=== PATIENT | male | born 1940 | race American Indian/Alaskan Native ===

== ENCOUNTER 2017-05-07 13:51 | Inpatient (IN) | payer MEDICARE, OTHER ==
[~2017-05-07] VITALS: Ht 177.8 cm; Wt 86.2 kg
[~2017-05-07 13:51] MED LIST: ACEROLA C500 MG PO; ALLERGY RELIEF10 M1 PO; ASPIRIN EC81 MG PO; CALCIUM CARBON500 MG PO; CLINDAMYCIN HC150 MG PO; FERROUS SULFAT325 MG PO; FLOMAX0.4 MG PO; HYDROCODON-ACE1 EAC8 PO; LEVOTHYROXINE25 MCG PO; LISINOPRIL5 MG PO; METFORMIN HCL500 MG PO; MULTILEX-T-M W1 EACH PO; OMEPRAZOLE20 MG PO; SULFACETAMIDE S15 ML
--- NOTE | 2017-05-07 18:42 | NUR ---
PT TO FLOOR AT 1800. PT ABLE TO SCOOT FROM STRETCHER TO BED WO PROBLEMS. PT A\O. ABLE TO GIVE URINE SAMPLE, SENT TO LAB. PT LUNGS CLEAR AND DIM WITH FINE CRACKLES IN THE BASES. PT DENIES COUGH. DC'D FIELD START IV. PT STANDBY ASSIST. SON WILL BRING GLASSES. VS STABLE.
--- NOTE | 2017-05-07 20:31 | EKG ---
[facility] [address] [facility] [place] [address] Signed Normal sinus rhythm Low voltage QRS Borderline ECG No previous ECGs available Confirmed by NADEGE THOMAS MD ([id number]) on 05/07/2017 8:31:32 PM Electronically Signed By: NADEGE THOMAS MD 05/07/172030 PATIENT NAME: WON TELLO Electrocardiogram DATE OF : 40 PHYSICIAN: NADEGE THOMAS MD REPORT #: [id number] REPORT IS CONFIDENTIAL AND NOT TO BE RELEASED WITHOUT AUTHORIZATION
--- NOTE | 2017-05-08 01:00 | NUR ---
PATIENT UP AND AMBULATES TO BATHROOM WITH CHARGE NURSE. UNMEASURED VOID. DENIED ANY COMPLAINTS.
--- NOTE | 2017-05-08 02:47 | NUR ---
PATIENT SLEEPING IN BED - NO SIGNS OF DISTRESS, NO COMPLAINTS
--- NOTE | 2017-05-08 05:12 | NUR ---
PATIENT HAS SLEPT WELL THRU THE NIGHT. UP TO BATHROOM TO VOID. NO COMPLAINTS OF PAIN, SOB OR DIFFICULTY BREATHING. PATIENT ACCUCHECKS ACHS - NO COVERAGE NEEDED DURING THIS SHIFT.
--- NOTE | 2017-05-08 07:10 | NUR ---
REPORT RECEIVED FROM JAMISON RASMUSSEN. PT UP IN CHAIR. STATES HE SLEPT WELL AND FEELS FINE.
--- NOTE | 2017-05-08 09:00 | NUR ---
PT UP IN CHAIR. HAS FINISHED BREAKFAST. STATES THEY ALREADY DID HIS BLOOD SUGAR THIS MORNING AND DOES NOT WANT TO DO IT AGAIN. BLOOD DRAW AT 0630 IS THE ONLY DOCUMENTED BS I CAN FIND, WILL USE THAT FOR SS. PT DENIES PAIN OR FURTHER NEEDS.
--- NOTE | 2017-05-08 09:55 | NUR ---
PT IS SITTING UP IN CHAIR WATCHING TV. VITALS TAKEN. PT AGREED TO SHOWER BUT WANTS TO WAIT FOR FAMILY TO BRING IN SOME PERSONAL ITEMS. PT ASKED FOR TV GUIDE
--- NOTE | 2017-05-08 10:55 | NUR ---
PT UP IN CHAIR READING A BOOK. DENIES CONCERNS. TOLERATING FLUID RESTRICTION
[2017-05-08] MEDS ORDERED: MILK OF MA400 MG/5 M PO (12:45)
--- NOTE | 2017-05-08 12:46 | NUR ---
MED REC COMPLETE--PER LUISA
--- NOTE | 2017-05-08 13:37 | NUR ---
PT ATE 100% OF LUNCH. TOLERATED WELL. DENIES FURTHER CONCERNS.
--- NOTE | 2017-05-08 14:36 | NUR ---
PT IS CURRENTLY IN THE SHOWER, WILL CALL WHEN HE IS DONE
--- NOTE | 2017-05-08 17:07 | NUR ---
PT SITTING IN CHAIR EATING DINNER. STARTED AB. INSTRUCTED TO CALL IF THE PUMP BEEPS. DENIES CONCERNS.
--- NOTE | 2017-05-08 17:49 | NUR ---
PT HAD GOOD DAY. UP IN CHAIR ALL DAY READING. TOLERATING ADA DIET AND FLUID RESTRICITON. IV AB. IV FLUSHES WELL.
--- NOTE | 2017-05-08 18:02 | NUR ---
PT IS SITTING UP IN CHAIR WITH CALL LIGHT IN REACH, JUST FINISHED DINNER, VITALS TAKEN. PT DOES NOT NEED ANYTHING ELSE AT THE MOMENT.
--- NOTE | 2017-05-08 19:00 | NUR ---
BEDSIDE REPORT RECEIVED FROM OFFGOING NURSE. PT SITTING UP IN CHAIR WITH FAMILY AT BEDSIDE. PT DENIES NEEDS AT THIS TIME. CALL LIGHT WITHIN REACH.
--- NOTE | 2017-05-08 21:30 | NUR ---
PT ASSESSMENT COMPLETE. PT SITTING UP IN CHAIR. DENIES PAIN. LUNGS CLEAR/DIM. PT DENIES NEEDS AT THIS TIME, STATES THAT HE WILL CALL WHEN HE IS READY FOR BED. CALL LIGHT WITHIN REACH.
--- NOTE | 2017-05-08 23:52 | NUR ---
PT RESTING WITH EYES CLOSED. RESPIRATIONS ARE EVEN AND UNLABORED. PT APPEARS TO BE SLEEPING. CALL LIGHT WITHIN REACH.
--- NOTE | 2017-05-09 02:15 | NUR ---
PT RESTING IN BED WITH EYES CLOSED. RESPIRATIONS EVEN AND UNLABORED. PT APPEARS TO BE SLEEPING. CALL LIGHT WITHIN REACH.
--- NOTE | 2017-05-09 04:17 | NUR ---
PT RESTING IN BED WITH EYES CLOSED. RESPIRATIONS EVEN AND UNLABORED. PT APPEARS TO BE SLEEPING. CALL LIGHT WITHIN REACH.
--- NOTE | 2017-05-09 04:35 | NUR ---
PT RESTED IN BED MAJORITY OF SHIFT. DENIES PAIN, SOB, NAUSEA. PT TOLERATING FLUID RESTRICTION WELL. IV SL EXCEPT FOR ABX ADMIN. CBG CHECKS AND SSI.
--- NOTE | 2017-05-09 06:20 | NUR ---
PT RESTING IN BED WITH EYES CLOSED, WAKES EASILY. PT DENIES PAIN, NAUSEA, SOB. PT STATES THAT HE WOULD LIKE TO TAKE A SHOWER TODDAY, WILL PASS ALONG IN REPORT. PT DENIES OTHER NEEDS. CALL LIGHT WITHIN REACH.
--- NOTE | 2017-05-09 09:00 | NUR ---
PT AWAKE SITTING IN CHAIR, ORIENTED TO ALL. DENIES CHEST PAIN, NAUSEA, OR OTHER CONCERNS AT THIS TIME. RUGHT LUNG CLEAR THROUGHOUT, LEFT CLEAR IN UPPER AND DIMINISHED, NO WHEEZING OR CRACKLES. PT INDEPENDENT IN ROOM. ALL OF BREAKFAST EATEN. CALL LIGHT WITHIN REACH.
--- NOTE | 2017-05-09 09:45 | NUR ---
PT UP TO SHOWER. SHOWERING INDEPENDENTLY.
[2017-05-09] MEDS ORDERED: LEVOFLOXACIN750 MG PO (10:10)
--- NOTE | 2017-05-09 10:15 | NUR ---
PT SITTING UP IN RECLINER, WEARING PERSONAL CLOTHING. PT WAITING FOR RIDE FOR DC. DENIES NEEDS OR CONCERNS AT THIS TIME.
== END 2017-05-09 11:45 | disposition home or self-care (01) | DRG 194 ==
LOC: ED 13:51 → MS 17:33
PROVIDERS: ADMIT Internal Medicine
DX: J13 Pneumonia due to Streptococcus pneumoniae (principal); E87.1 Hypo-osmolality and hyponatremia; E11.9 Type 2 diabetes mellitus without complications; Z79.4 Long term (current) use of insulin; N40.0 Benign prostatic hyperplasia without lower urinary tract symptoms; K21.9 Gastro-esophageal reflux disease without esophagitis; E03.9 Hypothyroidism, unspecified
CPT/HCPCS: 36415; 71010; 80048; 80053; 82533; 82570; 83605; 83735; 83930; 83935; 84133; 84300; 84439; 84443; 84484; 84540; 84550; 85025; 87040; 87449; 87899; 93005; 93010; 94667; 94668; J1650; J1956

== ENCOUNTER 2017-06-14 14:37 | Emergency (ER) | payer OTHER ==
[~2017-06-14] VITALS: Ht 177.8 cm; Wt 86.2 kg
[~2017-06-14 14:37] MED LIST changes: +LEVOFLOXACIN750 MG PO; +MILK OF MA400 MG/5 M PO
[2017-06-14] MEDS ORDERED: ULTRAM50 MG PO (15:11)
[2017-06-14] MEDS ORDERED: LASIX20 MG PO (16:59)
[2017-06-14] MEDS ORDERED: KLOR-CON M1010 MEQ PO (16:59)
--- NOTE | 2017-06-14 17:24 | EKG ---
[facility] [address] [facility] [place] [address] Signed Normal sinus rhythm T wave abnormality, consider inferior ischemia Abnormal ECG When compared with ECG of 07-MAY-2017 13:53, T wave inversion more evident in Inferior leads Nonspecific T wave abnormality now evident in Anterolateral leads Confirmed by NADEGE THOMAS MD ([id number]) on 06/14/2017 5:24:15 PM Electronically Signed By: NADEGE THOMAS MD 06/14/17 1724 PATIENT NAME: WON TELLO Electrocardiogram DATE OF : 40 PHYSICIAN: NADEGE THOMAS MD REPORT #: [id number] REPORT IS CONFIDENTIAL AND NOT TO BE RELEASED WITHOUT AUTHORIZATION
== END 2017-06-14 17:20 | disposition home or self-care (01) ==
LOC: ED 14:37
DX: I20.9 Angina pectoris, unspecified (principal); J90 Pleural effusion, not elsewhere classified; E11.9 Type 2 diabetes mellitus without complications; I10 Essential (primary) hypertension; K21.9 Gastro-esophageal reflux disease without esophagitis; Z90.49 Acquired absence of other specified parts of digestive tract; Z79.84 Long term (current) use of oral hypoglycemic drugs; Z79.899 Other long term (current) drug therapy; Z79.82 Long term (current) use of aspirin; Z79.891 Long term (current) use of opiate analgesic
CPT/HCPCS: 71020; 80053; 83880; 84484; 85025; 93005; 93010; 96360; 99284; J7030

== ENCOUNTER 2017-08-17 17:58 | Emergency (ER) | payer OTHER ==
[~2017-08-17] VITALS: Ht 177.8 cm; Wt 80.3 kg
[~2017-08-17 17:58] MED LIST changes: +KLOR-CON M1010 MEQ PO; +LASIX20 MG PO; +ULTRAM50 MG PO
[2017-08-17] MEDS ORDERED: METAMUCIL660 GM PO (22:07)
== END 2017-08-17 22:37 | disposition home or self-care (01) ==
LOC: ED 17:58
DX: R10.32 Left lower quadrant pain (principal); I10 Essential (primary) hypertension; E11.9 Type 2 diabetes mellitus without complications; K21.9 Gastro-esophageal reflux disease without esophagitis; Z90.49 Acquired absence of other specified parts of digestive tract; Z79.899 Other long term (current) drug therapy; Z79.891 Long term (current) use of opiate analgesic; Z79.82 Long term (current) use of aspirin; Z79.84 Long term (current) use of oral hypoglycemic drugs
CPT/HCPCS: 71010; 74177; 80053; 83690; 85025; 99284; Q9967

== ENCOUNTER 2017-10-04 14:35 | Inpatient (IN) | payer MEDICARE, OTHER ==
[~2017-10-04] VITALS: Ht 177.8 cm; Wt 80.0 kg
[~2017-10-04 14:35] MED LIST changes: +METAMUCIL660 GM PO
--- NOTE | 2017-10-04 21:10 | NUR ---
10/04/172109 Sapphire Arcos 9--PATIENT ARRIVED TO PACU ON 6L MASK O2 SAT 100% PATIENT REACTIVE TO VOICE. ABDOMEN SOFT AND ROUND. GLUCOSE 123. POTASSIUM DONE INFUSING.
--- NOTE | 2017-10-04 21:56 | NUR ---
PT ARRIVED TO FLOOR VIA STRETCHER AT 2134. ABLE TO TRANSFER SELF FROM STRETCHER TO HOSPITAL BED BY SCOOTING HIMSELF OVER. HE IS ALERT AND ORIENTED X4, VERY PLEASENT AND COOPERATIVE. DENIES PAIN. DENIES NAUSEA. ORIENTED TO ROOM AND CALL LIGHT. PT'S TWO SONS ARE IN ROOM AT THIS TIME.
--- NOTE | 2017-10-04 22:25 | EKG ---
[facility] [address] [facility] [place] [address] Signed Normal sinus rhythm Normal ECG When compared with ECG of 14-JUN-2017 14:45, No significant change was found Confirmed by NADEGE THOMAS MD ([id number]) on 10/04/2017 10:25:35 PM Electronically Signed By: NADEGE THOMAS MD 10/04/17 2225 PATIENT NAME: ELISHAWON Electrocardiogram DATE OF : 40 PHYSICIAN: NADEGE THOMAS MD REPORT #: [id number] REPORT IS CONFIDENTIAL AND NOT TO BE RELEASED WITHOUT AUTHORIZATION
--- NOTE | 2017-10-04 23:39 | NUR ---
1 PERSON ASSISTED PATIENT TO THE BATHROOM AND BACK TO BED. PATIENT VOIDED AND HAD A LIQUID BOWEL MOVEMENT. ICE CHIPS GIVEN. LAST POST PROCEDURE V/S TAKEN. CALL LIGHT WITHIN REACH.
--- NOTE | 2017-10-05 01:06 | NUR ---
PT APPEARS TO BE SLEEPING. RR WNL AND UNLABORED.
--- NOTE | 2017-10-05 02:04 | NUR ---
V/S I&O TAKEN. PATIENT JUST NEED WARM BLANKET. GIVEN.
--- NOTE | 2017-10-05 09:30 | NUR ---
PATIENT SITTING UP IN BED. MED STUDENT IN WITH PATIENT. PATIENT STATES THAT HE WILL CALL WHEN MED STUDENT LEAVES SO HE CAN WASH UP.
--- NOTE | 2017-10-05 10:43 | NUR ---
ALL PT NOTES AND ASSESSMENTS DONE ON PAPER CHART PRIOR TO THIS TIME. PT WORKING ON DRINKING GATORADE MIX RIGHT NOW.
--- NOTE | 2017-10-05 11:48 | NUR ---
PT UP TO THE RESTROOM WITH SBA.
--- NOTE | 2017-10-05 12:22 | NUR ---
PT UP TO THE RESTROOM WITH ANOTHER LOOSE STOOL. PT STATES HE STILL FEELS BACKED UP. RUNNING AB ON RIGHT AC PHOS IS RUNNING IN THE LEFT.
--- NOTE | 2017-10-05 14:21 | NUR ---
PATIENT RESTING IN BED. CALL BUTTON IN REACH. PATIENT WOULD LIKE TO SHOWER AFTER HE FINISHES HIS BOWEL PREP. NO OTHER NEEDS AT THIS TIME.
--- NOTE | 2017-10-05 16:19 | NUR ---
PT IN BED. ORDERED SCD. PUT THEM ON PT. CALL LIGHT IN REACH.
--- NOTE | 2017-10-05 17:30 | NUR ---
ASSESSED PT BLOOD SUGAR. 114. NO COVERAGE NEEDED. PT DRANK SOME TEA BUT NOTHING ELSE. UPPER ABDOMEN STILL EXTREMELY DISTENDED. STATES THAT IT IS WAY BETTER THAN YESTERDAY WHEN HE CAME IN.
--- NOTE | 2017-10-05 20:35 | NUR ---
PT IN BED, WATCHING TV. ANTIBOTIC COMPLETED. ASKED PT IF HE NEEDED TO USE THE BATHROOM, HE STATED NO, HE WOULD CALL WHEN HE NEEDED TO USE BATHROOM. CALL LIGHT WITHIN REACH, DENIES PAIN.
--- NOTE | 2017-10-05 22:07 | NUR ---
ASSISTED PATIENT TO THE BATHROOM AND BACK TO BED. PATIENT WASHED HANDS AND FACE. CALL LIGHT WITHIN REACH. DID NOT NEED ANYTHING AT THE MOMENT.
--- NOTE | 2017-10-06 02:22 | NUR ---
PT COMPLAINED OF 6/10 PAIN AFTER GETTING UP TO THE BATHROOM. PT VOIDED AND HAD A SMALL LIQUID BM. GAVE DILAUDID 0.5MG IV AND ZOFRAN 8MG IV FOR PAIN AND SLIGHT NAUSEA. PT HAS NO FURTHER NEEDS. CALL LIGHT IN REACH.
--- NOTE | 2017-10-06 05:36 | NUR ---
PT SLEPT MAJORITY OF SHIFT. UP TO BATHROOM A FEW TIMES, VOIDING WELL, LIQUID BM'S. GAVE DILAUDID 0.5MG IV FOR PAIN X1. ALERT AND ORIENTED X4, PLEASENT AND COOPERATIVE. STANDBY ASSIST. SURGERY SOMETIME LATE MORNING TODAY.
--- NOTE | 2017-10-06 07:29 | NUR ---
RECIEVED REPORT FROM JAMISON GRIFFITH. PT ASLEEP. PT STATES THE ABDOMINAL DISTENTION IS STILL BETTER THAN WHEN HE CAME IN ALTHOUGH IS QUITE DISTENDED. CALLED DR EDOUARD REGARDING LOW POTASSIUM OF 2.7. HE ORDERED 40 MEQ PO ELIXER AND 40 MEQ IV NOW. PUT ORDER IN AND AWAITING VERIFICATION.
--- NOTE | 2017-10-06 07:59 | OR ---
[facility] [address] [place], [place] [address] Signed DATE OF OPERATION: 10/04/2017 SURGEON: María Fish MD PREOPERATIVE DIAGNOSIS: Sigmoid volvulus. POSTOPERATIVE DIAGNOSIS: Sigmoid volvulus. PROCEDURE: Colonoscopy with reduction of sigmoid volvulus. ESTIMATED BLOOD LOSS: None. INDICATIONS: Won is a 76-year-old gentleman I know from in the office previously. He thought I did his colonoscopy last summer. When I checked our computer here at the hospital, I found colonoscopy from 2014. We had ran the colonoscope all the way up to the handle. We still want in the right colon. We had a barium enema done afterwards and he has a very long redundant sigmoid colon as well as a long redundant splenic flexure. The last 3 to 4 days, he has had no bowel movement and no flatus. He has had increasing abdominal distention and did need for 3 days. He tried some Milk of Magnesia and so forth and with no improvement. He finally came to the emergency room for evaluation. In the emergency room, he had [id number] abdominal distention. He was moderately firm. He had mild diffuse tenderness, but no peritoneal signs or symptoms. White count was normal. CT scan showed the sigmoid volvulus. I was asked to see him as a general surgeon presentation manager in the emergency room. I met with Won in the emergency room and I explained him the above findings, also his potassium is quite low at 2.9. They did give him 40 mEq potassium p.o. in the ER along with 10 mEq IV. I explained to Won, our plan was take him down to the endoscopy suite for limited colonoscopy to reduce the volvulus and evacuate some of that air to relieve distention on his colon and his abdomen. At least, we could hydrate him and replace his potassium and potentially put him through a bowel prep with the idea of going back and doing a primary resection and anastomosis of the sigmoid volvulus. He understands colonoscopy quite well. He understands there is risk including but not limited to gas bloating, crampy abdominal pain, bleeding, perforation requiring surgery, and missed diagnosis. He also understands the need for IV conscious sedation, given his age and medical issues and current situation. We asked an anesthesia provider to help us with increased monitoring sedation. He had expressed Electronically Signed By: MARÍA FISH MD 10/06/17 0759 PATIENT NAME: WON TELLO OPERATIVE REPORT DATE OF : 40 PHYSICIAN: MARÍA FISH MD REPORT #: [id number] REPORT IS CONFIDENTIAL AND NOT TO BE RELEASED WITHOUT AUTHORIZATION [address] [address] Signed understanding and wished to proceed. He gave me permission to call his son, Radha, but I was unable to reach him. In the meantime, Radha is here at the hospital and will be talking to him. PROCEDURE NOTE: Won was taken into our endoscopy suite and placed in the left lateral decubitus position. He was given IV sedation per nurse inspector rag sorting with propofol. He was given cefepime and Flagyl in the emergency room. After this, a digital rectal exam was performed and his rectum was empty of any stool. Adult colonoscope was introduced and advanced carefully up the rectum and into the sigmoid colon. We could see the classic twisting and swelling of the colonic mucosa and with little air pressure and just gentle pressure, we advanced the scope easily through the volvulus and up into a very dilated air-filled colon with some liquid stool. I suctioned out the air and his abdomen very rapidly decreased in girth as we set there with our scope, more air came through the liquid stool and we just suctioned that out with marked improvement in his abdominal distention. We advanced the scope as high as 50 cm, but could not advance any further because of the liquid stool. The scope was then slowly withdrawn. We did use some abdominal compression to see if we can get any more flatus or liquid stool out and we were not successful. At this point, see certainly in a much better situation, so we terminated the colonoscopy at that point. He is going to be admitted and we will replace his potassium and replace his fluids. Overall, Won tolerated the procedure quite well. María Fish MD ALB/MODL /[id number] cc: María Fish MD Electronically Signed By: MARÍA FISH MD 10/06/17 0759 PATIENT NAME: WON TELLO OPERATIVE REPORT DATE OF : 40 PHYSICIAN: MARÍA FISH MD REPORT #: [id number] REPORT IS CONFIDENTIAL AND NOT TO BE RELEASED WITHOUT AUTHORIZATION [address] [address] Signed JOSE Franco Electronically Signed By: MARÍA FISH MD 10/06/17 0759 PATIENT NAME: ELISHAWON OPERATIVE REPORT DATE OF : 40 PHYSICIAN: MARÍA FISH MD REPORT #: [id number] REPORT IS CONFIDENTIAL AND NOT TO BE RELEASED WITHOUT AUTHORIZATION
--- NOTE | 2017-10-06 07:59 | CONS ---
[facility] [address] [place], [place] [address] Signed DATE OF CONSULTATION: 10/04/2017 CHIEF COMPLAINT: No bowel movement for 3 to 4 days. HISTORY OF PRESENT ILLNESS: Won is a 76-year-old gentleman I know previously from the office. We did his colonoscopy just this last summer. He said he lives alone. He has never been , although he does have one son. He has not had a BM since 09/30/2017. He tried some laxatives and Metamucil without success. He said he has not eaten in 3 days. He has generalized abdominal distention. He finally came to the emergency room for evaluation. He clearly has diffuse generalized moderate distention of the abdomen. He is a little tender, but no peritonitis. His white count is not elevated. CT scan showed what looks like a sigmoid volvulus with stool throughout the entire colon. Consequently, I was asked to see him as a general surgeon five piece expansion maker hand. In the meantime, we did give him cefepime and Flagyl. Unfortunately, his potassium is also quite low at 2.7. PAST MEDICAL HISTORY: Type 2 diabetes, hypertension, gastroesophageal reflux disease, anemia, and eye infection. PAST SURGICAL HISTORY: Cholecystectomy, left knee surgery, and colonoscopy in summer. SOCIAL HISTORY: He does not smoke or drink. He has 1 son, Radha at [phone]. is his primary care provider. He prefers the pharmacy through the [facility]. He lives alone in his house. He drives and has never been . FAMILY HISTORY: Not reviewed today. REVIEW OF SYSTEMS: I reviewed 10 systems of Won and really nothing new since I have seen him last summer. ALLERGIES: None. MEDICATIONS: Lasix, potassium, Metamucil, metformin, ascorbic acid, aspirin, iron, levothyroxine, Electronically Signed By: MARÍA FISH MD 10/06/17 0759 PATIENT NAME: WON TELLO CONSULTATION DATE OF : 40 PHYSICIAN: MARÍA FISH MD REPORT #: [id number] REPORT IS CONFIDENTIAL AND NOT TO BE RELEASED WITHOUT AUTHORIZATION [facility] [address] [place] [id number] Signed Prilosec, Flomax, calcium, vitamin D, multivitamin, Milk of Magnesia, and tramadol. PHYSICAL EXAMINATION: VITAL SIGNS: Blood pressure 120/64, his heart rate 74, respiratory rate 16, temperature is 97.8, he is 98% on room air. He is 5 feet 10 inches, 80 kg. GENERAL: Won is a 76-year-old gentleman, lying supine in his emergency room bed. He does not appear systemically ill or toxic. LUNGS: Clear to auscultation bilaterally. HEART: Regular rate and rhythm. ABDOMEN: Shows moderate diffuse distention with mild tenderness throughout. LABORATORIES: His white blood cell count is 9.9. His hemoglobin is 12, potassium is 2.7, BUN 19, creatinine 0.8. Liver function tests are negative. His albumin is 3.8. EKG shows normal sinus rhythm. DIAGNOSTIC STUDIES: CT scan of the abdomen and pelvis shows the swelling on the right near the rectosigmoid junction consistent with sigmoid volvulus with stool backed up in the colon around to the cecum. There was a question whether or not it could be some pneumatosis in the cecum. ASSESSMENT AND PLAN: Won is a 76-year-old gentleman, who presents with not only sigmoid volvulus, but significant hypokalemia. At this point, we are going to take him down to our endoscopy suite and see if we just cannot use the colonoscope without much stool. We may not be successful. In addition, he is going to need his potassium corrected and we will continue his antibiotics. He is well aware of the event if we untwist the sigmoid colon. There was a 40% chance that can recur and consequently gently off these patient's surgery. He has expressed understanding and agrees above plan. María Fish MD [facility] /[id number] Electronically Signed By: MARÍA FISH MD 10/06/17 0759 PATIENT NAME: WON TELLO CONSULTATION DATE OF : 40 PHYSICIAN: MARÍA FISH MD REPORT #: [id number] REPORT IS CONFIDENTIAL AND NOT TO BE RELEASED WITHOUT AUTHORIZATION [facility] [address] [facility] [place] [address] Signed cc: MD Nader Billy PA Electronically Signed By: MARÍA FISH MD 10/06/17 0759 PATIENT NAME: ELISHAWON CONSULTATION DATE OF : 40 PHYSICIAN: MARÍA FISH MD REPORT #: [id number] REPORT IS CONFIDENTIAL AND NOT TO BE RELEASED WITHOUT AUTHORIZATION
--- NOTE | 2017-10-06 08:25 | NUR ---
AM PLAN IS TO GO TO THE OR THIS MORING AT SOME POINT. PT WAS WIPED DOWN WITH SURGICAL WIPES AT THIS TIME. PT REMAINS NPO AT THIS TIME.
--- NOTE | 2017-10-06 09:00 | NUR ---
PT UP TO THE RESTROOM. APPEARS PAINFUL ALTHOUGH PT DENIES NEEDING ANYTHING. POTASSIUM INFUSING WNL.
--- NOTE | 2017-10-06 10:31 | NUR ---
PT RESTING WITH EYES CLOSED. WIPE DOWN WAS DONE BY IRAM NEAL.
--- NOTE | 2017-10-06 11:22 | NUR ---
PATIENT TO SURGERY. IV KCL SENT WITH PUMP. STRAIGHT TUBING SENT WELL. JOSE ENRIQUE FROM SURGERY TRANSPORTING PATIENT IN BED TO SURGERY.
--- NOTE | 2017-10-06 11:32 | NUR ---
PT TO OR VIA STREACHER AT THIS TIME.
--- NOTE | 2017-10-06 11:33 | NUR ---
PT OFF FLOOR WITH SURGERY.
--- NOTE | 2017-10-06 14:35 | NUR ---
PT REMAINS OFF UNIT
--- NOTE | 2017-10-06 16:15 | NUR ---
10/06/17 1615 Sapphire Arcos 1604-PATIENT ARRIVED TO PACU ON 6L MASK O2 SAT 100% PATIENT NONAROUSABLE ORAL AIRWAY IN PLACE SR. DRESSING CDI. PATIENT HAS ATTENDS ON AND LIQUID STOOL. 1610-PATIENT AROUSES TO TATILE STIMULI OPENING EYES. DOZES BACK TO SLEEP.
--- NOTE | 2017-10-06 16:58 | NUR ---
PT TO FLOOR WITH RN ALEXIS. PT DROWSY BUT AROUSABLE. PT DENIES PAIN OR DISCOMFORT. ABDOMEN NOTICABLY SOFTER AND FLATTER. IVF INFUSING. DRESSING CDI. DEPENDS AND CHUCKS IN PLACE.
--- NOTE | 2017-10-06 19:47 | NUR ---
PT RESTING, FOLLOWS INSTRUCTIONS WELL. I9VF INFUSING W.O PROBLEMS, INCONTINENT OF LOOSE BROWN-CHALKY COLORED BM. CLEANSED, NO C/O . MID LINE DRESSING INTACT, F/C PATENT DRAINING DARK YELLOW URINE, COMFORTABLE
--- NOTE | 2017-10-06 23:11 | NUR ---
medicated with dilaudid 1 mg iv . c/o abd pain, awake, talking. abd dressing cdi/
--- NOTE | 2017-10-06 23:31 | NUR ---
VITALS AND I&OS DONE. REPOSITIONED PT WITH HELP FROM HIS RN. PT STATED HE WAS COMFORTABLE AT THIS TIME. PER PT REQUEST I GOT HIM A WARM BLANKET. BED SIDE TABLE AND CALL LIGHT IN REACH. PT SAID HE NEEDED NOTHING ELSE AT THIS TIME.
--- NOTE | 2017-10-07 02:25 | NUR ---
VITALS AND I&O S DONE. I ASKED HIM HOW HE WAS FEELING? HE STATED HIS STOMACH FEELS REALLY GOOD. ASKED IF HE NEEDED ANYTHING ? HE STATED NO. LEFT HIS CALL LIGHT AND BEDSIDE TABLE IN REACH.
--- NOTE | 2017-10-07 02:57 | NUR ---
PER PT REQUEST I GAVE HIM MORE ICE CHIPS. ASKED IF HE NEEDED ANYTHING ELSE? HE SAID NO. HIS CALL LIGHT AND SIDE TABLE IN REACH. ASKED IF HE WAS IN PAIN ? HE STATED NO AT THIS TIME.
--- NOTE | 2017-10-07 03:47 | NUR ---
no further c/o pain, awakens easily, ivf infusing w/o problems, abd dressing cdi, ice to area, f/c patent, no c/o pain or n/v, helpful with turning, no further loose stools
--- NOTE | 2017-10-07 04:20 | NUR ---
medicated witn 1mg iv dialudid c/o abd pain 06/27
--- NOTE | 2017-10-07 07:10 | NUR ---
BEDSIDE HANDOFF REPORT RECEIVED FROM PLANT FLOOR AUTOMATION MANAGER RN. PT RESTING IN BED. PT ON ROOM AIR, O2 SATS 93%. PT DENIES NEEDS AT THIS TIME.
--- NOTE | 2017-10-07 08:15 | NUR ---
PT RESTING IN BED. PT ON ROOM AIR, O2 SAT S93%, DENIES SOB, LUNG SOUNDS CLEAR. PT DENIES NAUSEA, BOWEL TONES ACTIVE. MIDLINE INCISION DRESSING CDI. CMS INTACT, NO EDEMA NOTED. PT ASSISTED TO CHAIR, 1 PA, DENIES DIZZINESS. PT TOLERATING CLEAR LIQUIDS <250/8HRS. DE LEON INPLACES, DRAINING CONCENTRATED URINE.
--- NOTE | 2017-10-07 08:33 | NUR ---
PT REQUESTING PAIN MEDICATION. 1 MG IV DILAUDID GIVEN. PT SITTING IN HCAIR, PROVIDED TOOTH BRUSH. PT DENIES OTHER NEEDS AT THIS TIME.
--- NOTE | 2017-10-07 09:27 | NUR ---
PT IS SITTING UP IN CHAIR WITH CALL LIGHT IN REACH. PT DID NOT NEED ANYTHING AT THE MOMENT
--- NOTE | 2017-10-07 09:29 | OR ---
[facility] [address], [place] [address] Signed DATE OF OPERATION: 10/06/2017 SURGEON: María Edouard MD PREOPERATIVE DIAGNOSIS: Sigmoid volvulus. POSTOPERATIVE DIAGNOSIS: Sigmoid volvulus. PROCEDURE: Sigmoidectomy with a Le side-to-end colorectal anastomosis, hand-sewn in 2 layers. ESTIMATED BLOOD LOSS: None. INDICATIONS: Won is a 76-year-old gentleman I have known previously. I did his colonoscopy back in 2014. We ran the colonoscope all the way up to the handle, we never made it to the right colon. Consequently, he had a barium enema done back in 2014. He has a very long redundant sigmoid colon. He had done well the last couple of years and then four days prior to admission, he said he had no bowel movement and he quit eating for 3 days. He tried various laxatives without success. He had diffuse significant abdominal distension with diffuse mild tenderness. He came to the emergency room for evaluation. His white count was normal at 9.1. His potassium was low at 2.7. The CT scan of abdomen and pelvis showed the swirling consistent with the sigmoid volvulus. I have been asked to see him in the emergency room as a general surgeon on-call. I took him directly to the endoscopy suite. With the colonoscope, we reduced the sigmoid volvulus. We got a tremendous amount of air out of his colon and he was markedly improved immediately following the procedure. We admitted him to the hospital for IV hydration and corrected his potassium levels and kept him on antibiotics. We allowed him liquid diet along with MiraLAX and Gatorade and he had a tremendous amount of liquid stool and gas out throughout the day and then later in the day, he started to get distended again consistent with recurrence of the volvulus. I had met with Won and his son, Radha and had multiple lengthy conversation with him regarding sigmoid volvulus. I explained that there was a 40% chance it would recur and consequently, we would like to recommend sigmoid resection with colorectal anastomosis. In emergent cases, certainly we can do colostomies. I had explained to them the nature of the surgery along with its risks including, but not limited to bleeding, infection, scarring, change in contour of the skin, damage to bowel, damage to the ureters, anastomotic leak, incisional hernias, and Electronically Signed By: MARÍA EDOUARD MD 10/07/17 0929 PATIENT NAME: WON TELLO OPERATIVE REPORT DATE OF : 40 PHYSICIAN: MARÍA EDOUARD MD REPORT #: [id number] REPORT IS CONFIDENTIAL AND NOT TO BE RELEASED WITHOUT AUTHORIZATION [facility] [address], [place] [address] Signed other unforeseen comorbidities. They had expressed understanding and wished to proceed. PROCEDURE NOTE: Won was brought down to our operating room and kept in the right lateral decubitus position on his hospital bed. We inserted the rigid proctoscope after some IV sedation and we had no success reducing the volvulus with a rigid proctoscope. After this, Won was placed supine onto the operating room table. He was then placed under general endotracheal tube anesthesia. He was already on preoperative antibiotics along with subcutaneous heparin. SCDs were in place. Ma catheter was inserted with return of clear yellow urine. He was then prepped and draped in the usual sterile fashion. After this, a standard periumbilical midline incision was made and carried in the abdomen with the help of the cautery. As is common, he had an enormous length of sigmoid colon, it was easily brought up out of the abdominal cavity. I was able to untwist the volvulus at that time. There was lots of edema in the mesentery as well as the bowel wall. The Bookwalter retractor was then placed. We did divide the bowel at the top of the rectum with our TA 60 stapler. The mesocolon was then divided between Pean clamps and 0 Vicryl ties back to the left colon. This straightened out the colon nicely. It was brought down to perform a side-to-end Le colorectal anastomosis. Our bowel clamp was placed on the proximal portion of the left colon and then we just opened the small portion of the distal left colon and evacuated the liquid stool and the air with the help of our suction. The proximal colon had been divided with our 75 mm linear stapler. After this, we performed our standard anastomosis in 2 layers with Vicryl and silk sutures. Because this colon was a bit dilated, anastomosis was quite wide at least 3 cm, if not a little bit more. After completion of anastomosis, the bowel clamp was removed and the pelvis was copiously irrigated with large amounts of warm antibiotic saline solution. Immediately ,air and some liquid stool came down the bowel through our anastomosis and out some of his rectum on to the bed. There was no leak whatsoever. After this, the small bowel was returned to its position and we closed the midline fascia with interrupted #1 [id number] PDS suture. The wound was irrigated and suctioned out until clear. The dermis was reapproximated with interrupted 3-0 subcuticular Monocryl sutures. The skin was reapproximated with luis e. Just prior to the procedure, our councilman had placed bilateral TAP blocks. Dry gauze and tape were then applied. Won was then awakened from his anesthesia, extubated in the OR, and taken to recovery room in stable condition. Electronically Signed By: MARÍA EDOUARD MD 10/07/17 0929 PATIENT NAME: WON TELLO OPERATIVE REPORT DATE OF : 40 PHYSICIAN: MARÍA EDOUARD MD REPORT #: [id number] REPORT IS CONFIDENTIAL AND NOT TO BE RELEASED WITHOUT AUTHORIZATION [address] [place], [place] [address] Signed MD DORA Billy/LEVY /[id number] cc: JOSE Franco Electronically Signed By: MARÍA EDOUARD MD 10/07/17 0929 PATIENT NAME: WON TELLO OPERATIVE REPORT DATE OF : 40 PHYSICIAN: MARÍA EDOUARD MD REPORT #: [id number] REPORT IS CONFIDENTIAL AND NOT TO BE RELEASED WITHOUT AUTHORIZATION
--- NOTE | 2017-10-07 10:00 | NUR ---
PT SITTING IN CHAIR. PT STATES PAIN IS BETTER, DENIES NEED AT THIS TIME.
--- NOTE | 2017-10-07 11:00 | NUR ---
DRESSING REMOVED PER MD ORDER, EDGES WELL APPROXIMATED, STEVE IN PLACE, NO REDNESS NOTED, SMALL AMOUNT OF OLD BLOODY DRAINAGE. DE LEON CATH REMOVED PER ORDER. PT PROVIDED WITH CRANBERRY JUICE, DISCUSSED INCREASE IN PO INTAKE. PT DENIES OTHER NEEDS AT THIS TIME.
--- NOTE | 2017-10-07 13:22 | NUR ---
PT WALKED ONE FULL LENGHT OF THE HALLWAY. PT IS NOW SITTING UP IN CHAIR WITH CALL LIGHT IN REACH. PT ASKED FOR MORE ICE WATER WAS GIVEN 150ML.
--- NOTE | 2017-10-07 17:28 | NUR ---
PT ASSISTED TO BATHROOM, ATTEMPTING TO VOID.
--- NOTE | 2017-10-07 18:07 | NUR ---
PT UNABLE TO VOID, HAD LARGE LOOSE BM, PT ASSISTED BACK TO BED, BLADDER SCANNED FOR 0 ML, OBTAINING SECOND BLADDER SCANNER FOR VERIFICATION.
--- NOTE | 2017-10-07 18:22 | NUR ---
PT IS RESTING IN BED SAFELY WITH CALL LIGHT IN REACH. PT HAS BEEN UNABLE TO URINATE IN THE LAST 4HRS, NURSE AWARE. PT DID NOT NEED ANYTHING ELSE AT THE MOMENT
--- NOTE | 2017-10-07 18:41 | NUR ---
BLADDER SCAN CONTINUES TO BE O ML. CALLED, ORDER TO PLACE DE LEON, IF LOW URINE OUTPUT THEN GIVE 1000 ML LR BOLUS. INDWELLING CATH PLACED, INITIAL 125 ML OF CONCENTRATED URINE OUT. LR BOLUS INFUSING. PT DENIES OTHER NEEDS AT THIS TIME.
--- NOTE | 2017-10-07 18:45 | NUR ---
PT ON ROOM AIR, LUNG SOUNDS CLEAR. PT UP TO CHAIR. PT RATING PAIN 8/10 FOR MAJORITY OF SHIFT, PT DOES NOT CALL FOR PAIN MEDICATION, REQUIRES FREQUENT PAIN ASSESSMENT. DE LEON CATH DC'D AT 1100, UNABLE TO VOID, INDWELLING CATH INSERTED, LOW URINE OUTPUT, LR BOLUS INFUSING. PT WITH LARGE LOOSE STOOLS. MIDLINE INCISION OPEN TO AIR. PT TOLERATING CLEAR LIQUID <500 ML/8HRS. BOWEL TONES ACTIVE. PT WALKED IN [place] WITH ASSISTANCE AND SAT IN CHAIR FOR MAJORITY OF SHIFT, UP WITH SBA.
--- NOTE | 2017-10-07 19:00 | NUR ---
BEDSIDE REPORT RECEIVED FROM JAMISON SIMPSON. PT LYING IN BED, 97% ON ROOM AIR. RATES PAIN AT 7/10 IN ABDOMEN. INCISION CLEAN, DRY AND INTACT WITH STEVE, OPEN TO AIR. NO REDNESS NOTED. LR BOLUS INFUSING AT THIS TIME, FAMILY IN ROOM. PT HAS NO REQUESTS AT THIS TIME.
--- NOTE | 2017-10-07 20:08 | NUR ---
PT ASSESSMENT COMPLETE. PT CONTINUES TO RATE PAIN 7/10 AT INCISION LINE, REFUSES PRN PAIN MEDICATION AT THIS TIME. BOWEL TONES HYPOACTIVE, PRESENT X 4. PT DENIES NAUSEA, DENIES PAIN WITH PALPATION OTHER THAN MIDLINE SENSITIVITY. FLAGYL INFUSING AT THIS TIME WNL. OFFERED ORAL CARE TO PT, PT STATES "I WILL DO THAT LATER". CBG 116. CALL LIGHT IS IN REACH, DE LEON DRAINING CONCENTRATED URINE, WILL CONTINUE TO MONITOR.
--- NOTE | 2017-10-07 21:10 | NUR ---
VITALS AND I&OS DONE. PT RESTING COMFORTABLE. PT SAYS HE NEEDS NOTHING MORE AT THIS TIME WHEN ASKED. LEFT BEDSIDE TABLE AND CALL LIGHT WITHIN REACH.
--- NOTE | 2017-10-07 21:58 | NUR ---
CHECKED ON PT, PT STATES PAIN IS 9/10 IN ABDOMEN AT INCISION. ADMINISTERED 1 MG DILAUDID IV. IVF INFUSING WNL, IV SITE FLUSHES WELL. BROUGHT PT ICE WATER, ASSISTED TO BRUSH TEETH AT SIDE OF BED. PT HAS CALL LIGHT IN REACH, GIVEN WARM BLANKET.
--- NOTE | 2017-10-07 23:20 | NUR ---
IN PT ROOM TO ASSESS PAIN, PT SLEEPING, EYES CLOSED, BREATHING UNLABORED, SPO2 96% ON ROOM AIR. IVF INFUSING.
--- NOTE | 2017-10-08 01:23 | NUR ---
FLUSHED PT DE LEON, FLUSHES WELL, NO CLOTTING, SCANT SEDIMENT NOTED. PT REPORTS PAIN 8/10 ALONG INCISION SITE, INCISION CLEAN, DRY, AND INTACT WITH STEVE. ADMINISTERED PRN DILAUDID IV, IV SITE WNL. GAVE PT ICE FOR ABDOMEN PER ORDER. BOWEL TONES ACTIVE X 4, ABDOMEN SOFT. URINE DRAINING IN DE LEON, SCDS ON. IV FLAGYL INFUSING AT THIS TIME. PT BACK TO SLEEP AFTER ASSESSING PT. SPO2 95% ON ROOM AIR, HR 84, BREATHING NON-LABORED. CALL LIGHT IS IN REACH.
--- NOTE | 2017-10-08 02:44 | NUR ---
PT SLEEPING AT THIS TIME, EYES CLOSED, MOUTH OPEN, BREATHING UNLABORED, SPO2 93% ON ROOM AIR, HR 87. SCDS ON.
--- NOTE | 2017-10-08 05:20 | NUR ---
ANSWERED CALL LIGHT, ASSISTED PT FROM BED TO CHAIR WITH PEPIOT DOMINGUEZ. PT GIVEN FLUIDS, PERSONAL SUPPLIES, CALL LIGHT. IVF INFUSING WNL. PT VERBALIZED UNDERSTANDING, TO USE CALL LIGHT TO AMBULATE.
--- NOTE | 2017-10-08 05:29 | NUR ---
PT HAS CONSISTENTLY HAD LOW URINE OUTPUT THROUGHOUT SHIFT, DE LEON CATHETER DRAINING BETWEEN 25-50 ML/HR. PT HAS USED CALL LIGHT APPROPRIATELY, PRN DILAUDID IV ADMINISTERED X 2. CONTINUES TO RECEIVE IVF IN LEFT AC WNL. PT AMBULATED FROM BED TO CHAIR WITH FWW, SBA. INCISION CLEAN DRY AND INTACT WITH STEVE OPEN TO AIR, ICE APPLIED TO INCISION.
--- NOTE | 2017-10-08 06:12 | NUR ---
temp 99.4. CDB encouraged, Used IS 10x, coop with procedure. Pt up in chair, no c/o pain. f/c patent draining light trent colored urine, qs. Primary RN to be notified of temp and uo
--- NOTE | 2017-10-08 07:05 | NUR ---
BEDSIDE HANDOFF REPORT RECEIVED FROM EARLY CHILDHOOD LEAD TEACHER RN. PT SLEEPING IN CHAIR, LEFT UNDISTURBED. IV FLUIDS INFUSING AT 100 ML/HR. O2 SATS 98% ON ROOM AIR.
--- NOTE | 2017-10-08 08:09 | NUR ---
DID BLOOD SUGAR THIS MORNING.
--- NOTE | 2017-10-08 08:15 | NUR ---
PT SITTING IN CHAIR. RATING PAIN 8/10, REQUESTING PAIN MEDICATION, GIVEN 1MG IV DILAUDID. PT ON ROOM AIR, LUNG SOUNDS CLEAR. PT WITH MIDLINE INCISION, OPEN TO AIR, NO DRAINAGE NOTED. PT WITH TRACE EDEMA TO BLE, CMS INTACT. DE LEON IN PLACE, DRAININGE CONCENTRATED URINE. BOWEL TONES HYPOACTIVE, DENIES NAUSEA. IV ABX GIVEN. PT DENIES NEEDS AT THIS TIME.
--- NOTE | 2017-10-08 11:34 | NUR ---
PATIENT IS UP EATING IS LUNCH IN CHAIR LINENS CHANGED.
--- NOTE | 2017-10-08 11:36 | NUR ---
PT ASSISTED TO WALK IN [place] ABLE TO WALK 1 FULL LENGTH AND BACK TO ROOM. PT SITTING IN CHAIR, SHAVING. IV FLUIDS INFUSING. PER DR. WIN DE LEON TO REMAIN IN PLACE UNTIL TOMORROW.
--- NOTE | 2017-10-08 12:04 | NUR ---
PT SITTING IN CHAIR, EATING CLEARS TRAY FOR LUNCH, TOLERATING WELL. BLOOD GLUCOE 126, NO SS INSULIN GIVEN. PT DENIES NEEDS AT THIS TIME.
--- NOTE | 2017-10-08 13:30 | NUR ---
CARE CONFERENCE ATTENDEE: PT, PT ATTEMPTED TO GET AHOLD OF SON SEVERAL TIMES TO NO AVAIL AND SAID TO GO AHEAD WITHOUT HIM. STAFF: DR FELDER, [employer], [facility], RT, TATIANA RN. DR FELDER DISCUSSED WITH PT HOW HE IS DOING WITH RECOVERY AND WHAT WE/HE IS EXPECTING TO DO WHEN HE GOES HOME. PT STATES HIS SON STOPPED WORKING TO HELP TAKE CARE OF HIM WHEN HE GOES HOME. PT DENIES FURTHER QUESTIONS.
--- NOTE | 2017-10-08 13:34 | NUR ---
PT SITTING IN CHAIR. RATING PAIN 9/10, REQUESTING PAIN MEDICATION. GIVEN 1 TAB NORCO. INSTRUCTED PT TO CALL IF HE BEGINS TO FEEL NAUSEATED. ATE 100% OF CLEAR TRAY. IV ABX INFUSING. PT DENIES OTHER NEEDS AT THIS TIME.
--- NOTE | 2017-10-08 14:59 | NUR ---
PT UP AND WALKING IN [place] WITH IRAM DEE. HE SEEMED PLEASED TO BE UP AND WALKING. GAVE ENCOURAGEDMENT-HE SEEMED TO ACCEPT IT AND RESPOND. BRIEF VISIT HE WALKED. WILL CONTINUE TO FOLLOW
--- NOTE | 2017-10-08 15:00 | NUR ---
PT ASSISTED TO WALK IN [place], SBA WITH FWW, COMPLETED 1 FULL LAP AROUND NURSING FLOOR. PT ASSISTED TO BATHROOM FOR BOWEL MOVEMENT.
--- NOTE | 2017-10-08 17:08 | NUR ---
PT ON ROOM AIR, LUNG SOUNDS CELAR. IV FLUIDS INFUSING D5LR AT 100 ML/HR. PT AMBULATED IN HALLS WITH SBA AND FWW, SAT IN CHAIR FOR MAJORITY OF SHIFT. DIET INCREASED TO CLEAR LIQUIDS. DE LEON IN PLACE, CONCENTRATED URINE, LOW OUTPUT, 1L LR BOLUS. PT WITH LARGE LOOSE BOWEL MOVEMENT. FLAGYL AND ROCEPHIN IV. PAIN CONTROLLED WITH 1 TAB NORCO.
--- NOTE | 2017-10-08 17:15 | NUR ---
MD NOTIFIED OF POOR URINE OUTPUT, TELEPHONE ORDER FOR 1000ML LR BOLUS.
--- NOTE | 2017-10-08 17:31 | NUR ---
PT IS RESTING IN BED SAFELY WITH CALL LIGHT IN REACH. PT HAS YET TO EAT HIS DINNER, BUT SAID HE WOULD WORK ON IT SOON
--- NOTE | 2017-10-08 18:11 | NUR ---
IV TO LEFT AC LEAKING, DISCONTINUES. NEW IV OBTAINED TO RIGHT FOREARM, LR BOLU SINFUSING. PT ASSISTED TO CHAIR FOR DINNER. PT INCONTINENT OF LOOSE STOOL IN BED, PERICARE PERFORMED, BED LINENS AND GOWN CHANGED. PT DENIES OTHER NEEDS AT THIS TIME.
--- NOTE | 2017-10-08 19:05 | NUR ---
BEDSIDE REPORT RECEIVED FROM JAMISON SIMPSON. PT SITTING UP IN CHAIR, RATES PAIN 0/10, PT REQUESTS TO SIT IN CHAIR FOR A WHILE TO LET FOOD SETTLE, PLAN TO WALK/SHOWER THIS EVENING. WILL CONTINUE TO MONITOR, CALL LIGHT IS IN REACH, IVF INFUSING WNL.
--- NOTE | 2017-10-08 19:43 | NUR ---
PT SLEEPING IN CHAIR, VISIBLE CHEST RISE. IV FLAGYL INFUSING AT 200 ML/HR. CALL LIGHT IN REACH.
--- NOTE | 2017-10-08 19:50 | NUR ---
PATIENT IN CHAIR ASLEEP. WHITEBOARD UPDATED, ROOM TIDIED.
--- NOTE | 2017-10-08 20:46 | NUR ---
PT ASSESSMENT COMPLETE. PTS LUNGS SOUND CLEAR, DIMINISHED IN BASES BILATERALLY, PT DEMONSTRATED IS USE, ENCOURAGED TO USE. PT CONTINUES TO DENY PAIN, TENDERNESS IN RUQ WITH PALPATION. INCISION CLEAN, DRY AND INTACT WITH STEVE. MILD NON-PITTING EDEMA BILATERALLY IN FEET, LEGS ELEVATED WITH BED CONTROLS. PT HAS PERSONAL SUPPLIES AND CALL LIGHT IN REACH, IVF INFUSING WNL. NO ADDITIONAL REQUESTS AT THIS TIME, CBG 131.
--- NOTE | 2017-10-08 22:30 | NUR ---
PATIENT CALLED BECAUSE HE THOUGHT HE HAD A BM. BUT JUST PASSED GAS. RN GETTING HIM PAIN PILL
--- NOTE | 2017-10-08 22:35 | NUR ---
ANSWERED PT CALL LIGHT, PT THOUGHT HE HAD BM IN BED, IRAM PORTILLO ASSISTED TO TURN PT, NO STOOL NOTED. PT REPORTED PAIN 10/10 WITH MOVEMENT, ADMINISTERED PRN NORCO X 1 PO. PT GIVEN WARM BLANKET, FRESH ICE WATER, LIGHTS OFF IN ROOM. CALL LIGHT IN REACH.
--- NOTE | 2017-10-09 00:02 | NUR ---
ANSWERED PT CALL LIGHT, ASSISTED PT TO REPOSTION, BOOST IN BED WITH IRAM PORTILLO. PT GIVEN DRINK OF ICE WATER, LEGS ELEVATED ON PILLOWS, SCDS ON, IVF INFUSING, NO ADDITIONAL REQUESTS AT THIS TIME. CALL LIGHT IN REACH.
--- NOTE | 2017-10-09 01:58 | NUR ---
NURSE IN ROOM
--- NOTE | 2017-10-09 02:08 | NUR ---
PT SLEEPING, AROUSES TO VOICE. ASSESSMENT COMPLETE. LUNGS SOUND CLEAR THROUGHOUT, NON LABORED. TRACE EDEMA BILATERALLY IN FEET, IMPROVEMENT FROM EARLIER IN SHIFT. SCDS ON, IVF INFUSING WNL FLAGYL, SITE FLUSHES WELL. BOWEL TONES ACTIVE X 4, ABDOMEN SOFT. EMPTIED DE LEON, 150 ML CONCENTRATED/JOHN COLOR URINE DRAINED. PT HAS CALL LIGHT IN REACH.
--- NOTE | 2017-10-09 04:37 | NUR ---
PT SLEEPING, EYES CLOSED, RR 16, SCDS ON, IVF INFUSING.
--- NOTE | 2017-10-09 05:34 | NUR ---
PT INCONTINENT OF STOOL X 1 THIS SHIFT. DE LEON CATHETER CONTINUES TO DRAIN CONCENTRATED URINE, JOHN IN COLOR. PT RECEIVED PO NORCO X 1 FOR PAIN WITH MOVEMENT AT ABD INCISION, RUQ. PT USED CALL LIGHT APPROPRIATELY. CONTINUES TO RECEIVE IV ANTIBIOTICS, IV SITE WNL, FLUSHES WELL, SCDS ON THROUGHOUT SHIFT.
--- NOTE | 2017-10-09 06:08 | NUR ---
ANSWERED PT CALL LIGHT, PT REQUESTING TO GET UP TO CHAIR. PT INCONTINENT OF STOOL, STATED HE THOUGHT HE WAS DRY. JAMISON RODRIGUEZ SHOWERED PT. LINENS CHANGED. PT NOW UP TO CHAIR IVF INFUSING. PT BRUSHING TEETH, GIVEN FRESH ICE WATER, PERSONAL SUPPLIES, COMB IN REACH. CALL LIGHT GIVEN TO PT. PT HAS NO ADDITIONAL REQUESTS AT THIS TIME.
--- NOTE | 2017-10-09 06:30 | NUR ---
IN PT ROOM FOR FLAGYL, LEVOTHYROXINE ADMINISTRATION. ASSISTED PT WITH LIGHTING, PERSONAL SUPPLIES, EMPTIED DE LEON CATHETER, 150 ML URINE, CONCENTRATED. PT HAS NO ADDITIONAL REQUESTS. CALL LIGHT IN REACH.
--- NOTE | 2017-10-09 07:05 | NUR ---
BEDSIDE HANDOFF REPORT RECEIVED FROM MANAGER RAIL RN. PT SITTING IN CHAIR. PT DENIES NEEDS AT THIS TIME. PT ON ROOM AIR. IV FLAGYL INFUSING.
--- NOTE | 2017-10-09 08:05 | NUR ---
PT SITTING IN CHAIR. IV FLUIDS INFUSING AT 100 ML/HR. PT EATING CLEARS TRAY, TOLERATING WELL. PT REQUESTING PAIN MEDICATION, RATING PAIN 10/10 WITH MOVEMENT, GIVEN 1 TAB NORCO. PT LUNG SOUNDS CLEAR, DIMINISHED BASES, ON ROOM AIR, ENCOURAGED I/S. BOWEL TONES ACTIVE, DENIES NAUSEA. PT WITH 1+ EDEMA TO BLE, CMS INTACT. MIDLINE INCISION OPEN TO AIR, STEVE IN PLACE, EDGES WELL APPROXIMATED, WITHOUT REDNESS. DE LEON CATH IN PLACE, DRAINING CONCENTRATED URINE. PT DENIES OTHER NEEDS AT THIS TIME
--- NOTE | 2017-10-09 10:09 | NUR ---
PT IS SITTING UP IN CHAIR WORKING ON HIS CLEAR LIQUID TRAY. PT SHOWERED EARLIER THIS MORNING AND DOES NOT WISH TO SHOWER AGAIN TODAY. PT DROOPED HIS CALL LIGHT AND ASKED FOR ME TO FIND IT FOR HIM, NOW IN PT'S LAP
--- NOTE | 2017-10-09 13:50 | NUR ---
PT IS SITTING UP IN THE CHAIR WITH CALL LIGHT IN REACH. PT ASKED FOR MORE ICE WATER. PT IS GOING TO WALK WITH NURSE OUT IN HALLWAY
--- NOTE | 2017-10-09 14:16 | NUR ---
PT WALKED IN [place] WITH NURSE. DE LEON CATH REMOVED PER ORDER. SCROTUM AND PENIS EDEMATOUS, MD NOTIFIEF. 2+ EDEMA TO BLE. LUNG SOUNDS CLEAR. BOWEL TONES ACTIVE. IV FLUIDS INFUSING AT 100 ML/HR, IV ABX INFUSING. PT DENIES NEEDS AT THIS TIME, SITTING IN CHAIR.
--- NOTE | 2017-10-09 17:25 | NUR ---
PT BLOOD GLUCOSE 168, GIVEN 1 UNTI SS INSULIN. PT SITTING IN CHAIR. DISCUSSED WALKING AFTER DINNER, PT AGREEABLE. PT DENIES OTHER NEEDS AT THIS TIME.
--- NOTE | 2017-10-09 17:40 | NUR ---
PT ALERT/ORIENTED. PT WALKED IN [place] WITH SBA. LUNG SOUNDS CLEAR, ON ROOM AIR. IV FLUIDS INFUSING D5LR AT 100 ML/HR. TOLERATING REGULAR DIET. [facility]'ED AT 1400, DUE TO VOID. PT WITH EDEMA TO SCROTUM AND PENIS, 2+ EDEMA TO BLE. PT DID NOT HAVE BM TODAY. NORCO GIVEN X1 FOR PAIN. POSSIBLY DISCHARGE TOMORROW.
--- NOTE | 2017-10-09 18:04 | NUR ---
PT IS SITTING UP IN CHAIR WITH CALL LIGHT IN REACH. PT ASKED FOR DINNER TRAY TO BE CLEARED AWAY. PT DID NOT NEED ANYTHING ELSE AT THE MOMNET
--- NOTE | 2017-10-09 18:34 | NUR ---
PT ASSISTED TO WALK IN [place], ABLE TO WALK 1 LAP WITHOUT FWW. PT ASSISTED TO BATHROOM.
--- NOTE | 2017-10-09 19:05 | NUR ---
RECEIVED REPORT FROM RN. PATIENT IS RESTING COMFORTABLY IN BED, BREATHING IS EVEN AND UNLABORED. DENIES NEEDS AT THIS TIME. CALL LIGHT WITHIN REACH.
--- NOTE | 2017-10-09 21:00 | NUR ---
PATIENT TAKEN TO BATHROOM TO VOID. HE WAS UNABLE TO VOID AT THIS TIME. BLADDER SCAN SHOWED 526 ML. PATIENT STATES "I DON'T FEEL LIKE I NEED TO GO RIGHT NOW." ALLOWED PATIENT TO STAND WITH URINAL AND SIT ON TOILET WITH NO URINE OUTPUT. WILL TAKE PATIENT TO BATHROOM AGAIN AT 2200 AND BLADDER SCAN AGAIN. DENIES FURTHER NEEDS AT THIS TIME. CALL LIGHT WITHIN REACH.
--- NOTE | 2017-10-09 21:32 | NUR ---
PATIENT RESTING COMFORTABLY IN BED, BREATHING IS EVEN AND UNLABORED. DENIES NEEDS AT THIS TIME. ASSESSMENT DONE. PATIENT STATES "SOMETIMES DIET SODA HELPS ME PEE." PROVIDED DIET SODA, WILL MONITOR URINE OUTPUT AND BLADDER VOLUME. CALL LIGHT WITHIN REACH.
--- NOTE | 2017-10-09 21:50 | NUR ---
PATIENT COMPLAINS OF 7/10 PAIN IN ABD, NORCO GIVEN PER EMAR. DENIES FURTHER NEEDS AT THIS TIME. BREATHING IS EVEN AND UNLABORED. CALL LIGHT WITHIN REACH.
--- NOTE | 2017-10-09 22:00 | NUR ---
BLADDER SCANNED PATIENT FOR 550, PATIENT STILL UNABLE TO VOID. WILL PLACE DE LEON CATHETER.
--- NOTE | 2017-10-09 22:15 | NUR ---
SPOKE WITH DR WALDEN ABOUT PT NOT BEING ABLE TO VOID. SBA UP TO BATHROOM WITH NO RESULTS.PT DRINKING FLUIDS AND WILL ATTEMPT AGAIN BEFORE PLACING DE LEON.
--- NOTE | 2017-10-09 23:20 | NUR ---
DE LEON CATHETER PLACEMENT WAS DELAYED DUE TO DIFFICULT INSERTION. ASSISTED BY JAMISON MARIN AND JAMISON RASMUSSEN. PATIENT HAD 225 ML URINE RETURN. MET URINE OUTPUT PERAMETERS PER DR. WALDEN. WILL CONTINUE TO MONITOR URINE OUTPUT CLOSELY.ENCOURAGING FLUIDS.
--- NOTE | 2017-10-10 01:25 | NUR ---
patient resting comfortably in bed, breathing is even and unlabored. denies pain at this time. no needs currently. call light within reach.
--- NOTE | 2017-10-10 02:30 | NUR ---
CALLED DR. WALDEN REGARDING PATIENT'S LOW URINE OUTPUT. HE ORDERED A X1 500 ML LR BOLUS TO BE GIVEN. NO OTHER ORDERS AT THIS TIME.
--- NOTE | 2017-10-10 02:49 | NUR ---
PATIENT RESTING COMFORTABLY IN BED, BREATHING IS EVEN AND UNLABORED. EXPLAINED PATIENT'S LOW URINE OUTPUT AND UPDATED HIM WITH THE POC. HE WAS AGREEABLE AND STATED HE UNDERSTOOD. NO NEEDS AT THIS TIME. CALL LIGHT WITHIN REACH.
--- NOTE | 2017-10-10 05:35 | NUR ---
PATIENT RESTING COMFORTABLY IN BED, BREATHING IS EVEN AND UNLABORED. FLACC SCORE OF 0. CALL LIGHT WITHIN REACH.
--- NOTE | 2017-10-10 05:43 | NUR ---
PATIENT'S NIGHT WAS UNEVENTFUL. HE HAS BEEN RESTING COMFORTABLY IN BED THROUGHOUT SHIFT. VSS. DE LEON CATHETER PLACED LAST NIGHT DUE TO BLADDER SCAN OF >600 ML. PATIENT HAD LOW URINE OUTPUT AT 0200, 500 ML LR BOLUS GIVEN, URINE OUTPUT NOW QS. ALERT AND ORIENTED X4. HAS 2+ EDEMA IN BLE, HAS S1,S2. LUNGS ARE CLEAR, REMAINS ON ROOM AIR. BOWEL TONES ARE ACTIVE, CONTINUES TO HAVE BROWN LIQUID STOOL.MIDLINE INCISION IS APPROXIMATED, OPEN TO AIR, C/D/I. SBA DURING AMBULATION, MAY REQUIRE 1PA DURING GREATER DISTANCES OF AMBULATION. IV IN RIGHT ARM IS SALINE LOCKED, TOLERATING REGULAR DIET. PAIN WEWLL CONTROLLED WITH PRN NORCO. NO ACUTE CHANGES FROM BEGINNING OF SHIFT ASSESSMENT.
--- NOTE | 2017-10-10 07:18 | NUR ---
PT IN BED, AROUSED TO VERBAL STIMULI. IS SIPPING WATER. DE LEON CATHETER IN PLACE, URINE DARK, CONCENTRATED. RECIEVED BEDSIDE REPORT FROM JAMISON JULES.
--- NOTE | 2017-10-10 07:56 | NUR ---
PT UP TO BATHROOM WITH FWW WITH STANDBY ASSIST. AMBULATED SLOWLY, BUT TOLERATED WELL. HAD INCONTINENT MEDIUM BROWN LIQUID STOOL. IS NOW ATTEMPTING TO HAVE ANOTHER BM.
--- NOTE | 2017-10-10 10:39 | NUR ---
PT SITTING UP IN RECLINER, SLEEPING SOUNDLY. NO S/S DISTRESS OR DISCOMFORT.
--- NOTE | 2017-10-10 11:22 | NUR ---
PT SITTING UP IN RECLINER, FAMILY AT SIDE VISITING WITH PT. BG CHECKED, 158. PT DENIED NEEDS AT THIS TIME.
--- NOTE | 2017-10-10 13:52 | NUR ---
PT SITTING UP IN RECLINER, DENIED NEEDS.
--- NOTE | 2017-10-10 15:01 | NUR ---
PATIENT SALINE LOCKED AND AMBULATING IN HALLWAY.
--- NOTE | 2017-10-10 15:51 | NUR ---
PT AMBULATED IN HALLS X 2. HAD SHOWER, AND IS NOW IN BED RESTING. C/O 10/10 ABDOMINAL PAIN WITH ACTIVITY. GAVE NORCO 5/325 MG 1 TAB PO PRN. PT DENIED OTHER NEEDS. HAS PERSONAL SUPPLIES AND CALL LIGHT IN REACH.
--- NOTE | 2017-10-10 16:03 | NUR ---
PATIENT AND I WALKED 2 LAPS AROUND MED SURG. AND GAVE SHOWER AND GOT ICE WATER. NOW LAYING BED.
--- NOTE | 2017-10-10 17:30 | NUR ---
PT IN BED. ASSISTED PT IN ORDERING DINNER. PT DENIED OTHER NEEDS.
--- NOTE | 2017-10-10 18:08 | NUR ---
PT UP WITH STANDBY ASSIST. ENCOURAGED TO BE UP OUT OF BED, AND TO AMBULATE IN HALLS THIS SHIFT, WHICH PT DID. TOLERANCE IS GOOD. APETITE GOOD. IS ON D5LR AT 100CC/HR. REGULAR DIET. TOOK NORCO PRN ABDOMINAL PAIN, WHICH PT REPORTED WAS EFFECTIVE FOR HIM. HAD 2 BMS THIS SHIFT. URINE OUTPUT QUANTITY SUFFICIENT. DE LEON REMAINS IN PLACE, URINE STILL SLIGHTLY CONCENTRATED. MIDLINE ABDOMINAL INCISION WNL, MARLO.
--- NOTE | 2017-10-10 19:28 | NUR ---
PT STILL HAS EDEMA TO BLE, AND SCROTAL EDEMA, BUT DID HAVE URINE OUTPUT OF ONLY 125 CC IN LAST [address] WALDEN VIA TELEPHONE REGARDING THIS, AND ASKED FOR CLARRIFICATION REGARDING PT'S IVF ORDERS. RECIEVED TORB: SALINE LOCK AT 0600, 10/11/17. NOTIFIED NOC RN, DHARA, AND ENTERED ORDERS.
--- NOTE | 2017-10-10 22:35 | NUR ---
PATIENT RESTING COMFORTABLY IN BED, BREATHING IS EVEN AND UNLABORED. ASSISTED TO BATHROOM WITH 1PA/FWW/NON-SLIP SOCKS. PATIENT TOLERATED AMBULATION WELL. NOW RESTING IN BED AGAIN. REPORTS 9/10 PAIN IN ABD, PRN NORCO GIVEN PER EMAR. DENIES FURTHER NEEDS AT THIS TIME. FRESH WATER GIVEN, ASSESSMENT DONE, CALL LIGHT WITHIN REACH.
--- NOTE | 2017-10-10 23:45 | NUR ---
PATIENT RESTING COMFORTABLY IN BED, BREATHING IS EVEN AND UNLABORED. FLACC SCORE OF 0. CALL LIGHT WITHIN REACH.
--- NOTE | 2017-10-10 23:57 | NUR ---
PATIENT RESTING COMFORTABLY. PRN MORPHINE GIVEN FOR MILD DYSPNEA. ORAL CARE DONE. FAMILY AT BEDSIDE.
--- NOTE | 2017-10-11 00:59 | NUR ---
PATIENT RESTING COMFORTABLY IN BED, BREATHING IS EVEN AND UNLABORED. DENIES NEEDS AT THIS TIME. FRESH ICE WATER GIVEN. CALL LIGHT WITHIN REACH.
--- NOTE | 2017-10-11 04:00 | NUR ---
PATIENT RESTING COMFORTABLY IN BED, BREATHING IS EVEN AND UNLABORED. DENIES NEEDS AT THIS TIME. DENIES PAIN. ASSESSMENT DONE, CALL LIGHT WITHIN REACH.
--- NOTE | 2017-10-11 05:30 | NUR ---
PATIENT'S NIGHT WAS UNEVENTFUL. HE HAS BEEN RESTING COMFORTABLY IN BED THROUGHOUT SHIFT. VSS, URINE OUTPUT QS. PAIN WELL CONTROLLED WITH PRN NORCO. ALERT AND ORIENTED. 2+ SWELLING IN BLE. LUNGS ARE CLEAR, ON ROOM AIR. CONTINUES TO HAVE LIQUID BROWN STOOL. FOLEYIN PLACE, URINE IS CONCENTRATED. MIDLINE ABD INCISION IS C/D/I, OPEN TO AIR, WELL APPROXIMATED, NO REDNESS. 1PA/FWW DURING AMBULATION. HAD IV FLUIDS THROUGHOUT NIGHT, WILL BE SALINE LOCKED THIS MORNING. NO ACUTE CHANGES FROM BEGINNING OF SHIFT.
--- NOTE | 2017-10-11 05:42 | NUR ---
PATIENT RESTING COMFORTABLY IN BED, BREATHING EVEN AND UNLABORED. DENIES PAIN AT THIS TIME. SALINE LOCKED. CALL LIGHT WITHIN REACH.
--- NOTE | 2017-10-11 07:36 | NUR ---
DID BLOOD SUGAR CHECK. PATIENT IS SLEEPING.
--- NOTE | 2017-10-11 07:40 | NUR ---
RECIEVED REPORT FROM DHARA SWIFT. PT SLEEPING COMFORTABLY. SALINE LOCKED IN RIGHT FOREARM. DE LEON CATHETER IN PLACE. CALL LIGHT AND PERSONAL ITEMS WITHIN REACH.
--- NOTE | 2017-10-11 12:19 | NUR ---
PT UP FOR LUNCH IN BED. COMPLAINED OF ABDOMINAL PAIN 06/27. 2 NORCO TABS GIVE. PLAN TO WALK AFTER LUNCH. PERSONAL ITEMS WITHIN REACH. CALL LIGHT WITHIN REACH
--- NOTE | 2017-10-11 12:49 | NUR ---
PT UP TO RESTROOM. TOLLERATED WELL.
--- NOTE | 2017-10-11 16:56 | NUR ---
PATIENT AND I WALKED 2 LAPS AROUND MED SURG.
--- NOTE | 2017-10-11 16:57 | NUR ---
PATIENT REFUSED SHOWER.
--- NOTE | 2017-10-11 18:20 | NUR ---
PT AWAKE IN BED. SET UP FOR DINNER.
--- NOTE | 2017-10-11 18:29 | NUR ---
PT HAD A GOOD DAY. WALKED 2 LAPS AFTER DINNER. TOLLERATED WELL. IV SALINE LOCKED IN RIGHT FOREARM. REGULAR DIET. PAIN 10 3 NORCOS GIVEN. EYE DROPS IN KITS LIST NOT TO BE USED. PREDNISONE EYE DROPS IN PT ROOMS ARE THE ONES BEING USED. DC URINARY CATHETER TOMRROW MORNIGN. THEN POST VOID RESIDUALS TO BE DONE. MIDLINE INSITION OPEN TO AIR, APROXIMATED. NO SIGNS OF INFECTION. 1PA. BLE +1 EDEMA. SCROTAL EDEMA. LASIX STARTED TODAY ALONG WITH POTASSIUM.LARGE LIQ BROWN STOOL TODAY. VVS. BS CHECKS FOR SIGNS OF HYPER/HYPOGLYCEMIA.
--- NOTE | 2017-10-11 19:15 | NUR ---
RECEIVED REPORT FROM RN. PATIENT RESTING COMFORTABLY IN BED, BREATHING IS EVEN AND UNLABORED. DENIES NEEDS AT THIS TIME. CALL LIGHT WITHIN REACH.
--- NOTE | 2017-10-11 20:58 | NUR ---
PATIENT BRUSHED HIS TEETH WASHED FACE AND HANDS.
--- NOTE | 2017-10-11 21:45 | NUR ---
PATIENT RESTING COMFORTABLY IN BED, BREATHING IS EVEN AND UNLABORED. REPORTS 9/10 PAIN IN ABD, PRN NORCO GIVEN PER EMAR. AMBULATED TO BATHROOM WITH 1PA/FWW/NON-SLIP SOCKS. NOW RESTING COMFORTABLY IN BED AGAIN DENIES NEEDS AT THIS TIME. ASSESSMENT DONE. CALL LIGHT WITHIN REACH.
--- NOTE | 2017-10-11 23:59 | NUR ---
PATIENT RESTING COMFORTABLY IN BED, BREATHING IS EVEN AND UNLABORED. FLACC SCORE OF 0. CALL LIGHT WITHIN REACH.
--- NOTE | 2017-10-12 02:02 | NUR ---
PATIENT RESTING COMFORTABLY IN BED, BREATHING IS EVEN AND UNLABORED. PATIENT ASKED "CAN YOU SHOW ME HOW TO USE MY BREATHING MACHINE?" INSTRUCTED PATIENT ON HOW TO USE IS, HE DEMONSTRATED PROPER USE, USING IS X10 AND REACHING 1000 ML INSPIRED VOLUME. REPOSITIONED PATIENT ON RIGHT SIDE FOR COMFORT. CURRENTLY DENIES PAIN. NO FURTHER NEEDS AT THIS TIME. CALL LIGHT WITHIN REACH.
--- NOTE | 2017-10-12 04:26 | NUR ---
PATIENT RESTING COMFORTABLY IN BED, BREATHING IS EVEN AND UNLABORED. FLACC SCORE OF 0. CALL LIGHT WITHIN REACH.
--- NOTE | 2017-10-12 05:24 | NUR ---
PATIENT'S NIGHT WAS UNEVENTFUL. HE HAS BEEN RESTING COMFORTABLY IN BED THROUGHOUT SHIFT. VSS, URINE OUTPUT QS. PAIN WELL CONTROLLED WITH PRN NORCO. ALERT AND ORIENTED, LUNGS ARE CLEAR, O2 REMAINS >90% ON ROOM AIR. BOWEL TONES ARE ACTIVE X4, CONTINUES TO HAVE LIQUID BROWN STOOL. DE LEON WILL BE DC'd IN AM, POST-VOID RESIDUALS TO BE COMPLETED. URINE NO LONGER APPEARS CONCENTRATED. INCISION TO MIDLINE REMAINS C/D/I, OPEN TO AIR, EDGES ARE WELL APPROXIMATED. 1PA/FWW, IV IS SALINE LOCKED. TOLERATING REGULAR DIET. NO ACUTE CHANGES FROM BEGINNING OF SHIFT.
--- NOTE | 2017-10-12 06:40 | NUR ---
PATIENT RESTING COMFORTABLY IN BED, BREATHING IS EVEN AND UNLABORED. DENIES NEEDS AT THIS TIME. MEIDCATION GIVEN, DE LEON CATHETER REMOVED. DENIES PAIN AT THIS TIME. CALL LIGHT WITHIN REACH.
--- NOTE | 2017-10-12 08:45 | NUR ---
PT AWAKE IN BED. AM CARE WET WASH CLOTH. UPDATAD WB. FRESH ICE WATER.
--- NOTE | 2017-10-12 10:42 | NUR ---
DE LEON CATHETER DC'D @ 0630. PT HASEN'T VOIDED FOR 4 HOURS. BLADDER SCANNED @ 1030. [address]ML RECORDED. DR THOMAS AND DR EDOUARD INFORMED. NO NEW ORDERS.
--- NOTE | 2017-10-12 12:55 | NUR ---
PT BACK TO CHAIR FROM BATHROOM. 200ML VOIDED. POST VOID RESIDUAL WAS 0. NO PAIN AT THIS TIME. PT COMFORTABLE WITH PERSONAL ITEMS AND CALL LIGHT WITHIN REACH.
--- NOTE | 2017-10-12 13:16 | NUR ---
PT IN CHAIR AWAKE. HELPED HIM TO THE BR. JAMISON GERARDO BLADDER SCANNED HIM.
--- NOTE | 2017-10-12 13:50 | NUR ---
CALLED AND UPDATED SILKE ON PT URINATILNG X2 WITH 0 ML POST VOID RISIDUAL. PLAN ON DISCHARGE TOMORROW.
--- NOTE | 2017-10-12 14:17 | NUR ---
PT SITTING IN CHAIR, ALERT AND ORIENTED. RN FRANCISCO WAS PLEASED WITH HIS IMPROVEMENT. CATHETER OUT, URINATING GOOD OUTPUT. TALKED ABOUT THE MTNS AND SNOW. SON AND G.SON HAD BEEN BY. THEY HAD JUST COME BACK FROM THE [facility] AND HE WAS RETELLNG ME THEIR STORY. I KNOW THIS IS HARD ON HIM, BUT SEEMS TO BE IMPROVING. EXTENDED A BLESSING, WILL CONTINUE TO FOLLOW
--- NOTE | 2017-10-12 15:44 | NUR ---
WALKED FROM RESTROOM TO CHAIR. TOLLERATED WELL. PLAN ON SHOWER IN 30 MIN. DID INCENTIVE SPEROMETER. SHOWED KNOWLEDGE WITH DEVICE. NO PAIN AT THIS TIME. PERSONAL ITEMS WITHIN REACH. CALL LIGHT WITHIN REACH. PLAN ON WALKINGTODAY.
[2017-10-12] MEDS ORDERED: CILOXAN5 ML OPTH (16:12)
[2017-10-12] MEDS ORDERED: DICLOFENAC SOD2.5 ML OPTH (16:13)
--- NOTE | 2017-10-12 16:13 | NUR ---
INFORMED PATIENT OF POSSIBLE DISCHARGE TOMORROW. HE SAID HE WOULD INFORM HIS SON. EDUCATED ON DIET AND ANSWERED ALL THE PATIENTS QUESTIONS. URINATING WELL. HAVING MULTIPLE SMAAL LIQUID BOWEL MOVEMENTS. NO PIAN ALL DAY. USING IS REGULARLY.
[2017-10-12] MEDS ORDERED: PREDNISOLONE ACE5 ML OPTH (16:17)
--- NOTE | 2017-10-12 16:18 | NUR ---
MED REC COMPLETE WITH [facility] REFILL HISTORY
--- NOTE | 2017-10-12 17:37 | NUR ---
TOOK PT OFF THE TOLIET.
--- NOTE | 2017-10-12 18:55 | NUR ---
MOISES REMOVED THIS AM. POST RESIDUALS TODAY. SBA WITH FWW. SMALL LIQ BM X3. PT DENIES NEED FOR PAIN COVERAGE. NO PAIN REPORTED OVER SHIFT. TOLLERATING ADA DIET. NO NAUSEA. SMALL APPETITE. MIDLINE WELL APROXIMATED, OPEN TO AIR. RA, SCD WHILE IN BED.
--- NOTE | 2017-10-12 19:00 | NUR ---
RECEIVED REPORT FROM RN. PATIENT IS RESTING COMFORTABLY IN BED, BREATHING IS EVEN AND UNLABORED. RN RICHARD ASSISTED PATIENT TO BATHROOM WITH SBA/FWW/NON-SLIP SOCKS. NOW RESTING COMFORTABLY IN BED.
--- NOTE | 2017-10-12 20:15 | NUR ---
PATIENT RESTING COMFORTABLY IN BED, BREATHING IS EVEN AND UNLABORED. REPORTS 10/10 PAIN IN ABD, PRN NORCO GIVEN PER EMAR. ASSISTED PATIENT WITH BRUSHING TEETH, REPOSITIONED IN BED FOR COMFORT. DENIES FURTHER NEEDS AT THIS TIME. ASSESSMENT DONE, MEDICATIONS GIVEN. CALL LIGHT WITHIN REACH.
--- NOTE | 2017-10-12 20:51 | NUR ---
AMBULATED PT BACK TO BED. PT WAS BLADDER SCANNED WELL.
--- NOTE | 2017-10-12 22:28 | NUR ---
PATIENT RESTING COMFORTABLY IN BED, BREATHING IS EVEN AND UNLABORED. FLACC SCORE OF 0. CALL LIGHT WITHIN REACH.
--- NOTE | 2017-10-13 00:05 | NUR ---
PATIENT RESTING COMFORTABLY IN BED, BREATHING IS EVEN AND UNLABORED. FLACC SCORE OF 0. CALL LIGHT WITHIN REACH.
--- NOTE | 2017-10-13 02:03 | NUR ---
PATIENT RESTING COMFORTABLY IN BED, BREATHING IS EVEN AND UNLABORED. FLACC SCORE OF 0. CALL LIGHT WITHIN REACH.
--- NOTE | 2017-10-13 04:20 | NUR ---
PATIENT RESTING COMFORTABLY IN BED, BREATHING IS EVEN AND UNLABORED. ASSISTED PATIENT TO BATHROOM WITH SBA/FWW. LINENS CHANGED DUE TO PATIENT BEING INCONTINENT OF URINE. ASSESSMENT DONE.
--- NOTE | 2017-10-13 05:16 | NUR ---
PATIENT'S NIGHT WAS UNEVENTFUL. HE HAS BEEN RESTING COMFORTABLY IN BED THROUGHOUT SHIFT. VSS, URINE OUTPUT QS, PAIN WELL CONTROLLED WITH PRN NORCO. ALERT AND ORIENTED, HAS TRACE EDEMA IN BLE. LUNGS ARE CLEAR, O2 SATURATION >90% ON ROOM AIR. BOWEL TONES ARE ACTIVE, CONTINUES TO HAVE LIQUID BROWN STOOL. MIDLINE INCISION TO ABD IS C/D/I, OPEN TO AIR, WELL APPROXIMATED. PATIENT IS A SBA/FWW. IV TO RIGHT ARM IS SALINE LOCKED, FLUSHES WELL. TOLERATING REGULAR DIET. NO ACUTE CHANGES FROM BEGINNING OF SHIFT.
--- NOTE | 2017-10-13 06:24 | NUR ---
PATIENT RESTING COMFORTABLY IN BED, BREATHING IS EVEN AND UNLABORED. DENIES NEEDS AT THIS TIME. CALL LIGHT WITHIN REACH.
--- NOTE | 2017-10-13 07:45 | NUR ---
report given from deejay rn. patient requesting to go to the br. assisted to the br with a stby assist. patient updated that he has discharge orders. plan to call son for discharge. no other needs at this time.
[2017-10-13] MEDS ORDERED: NORCO 5-325 TA1 EACH PO (08:17)
--- NOTE | 2017-10-13 08:18 | NUR ---
PATIENT UP TO CHAIR FROM BED WITH STAND BY ASSIST AND FWW. PATIENT SITTING UP WITH BREAKFAST. FRESH ICE WATER. CALL BUTTON IN REACH. PATIENT STATES THAT HE WILL TAKE A SHOWER AFTER BREAKFAST. NO OTHER NEEDS AT THIS TIME.
--- NOTE | 2017-10-13 08:55 | NUR ---
patient called to go to the br. patient tolerated 75 percent of breakfast. tolerating ambulation well. son updated with discharge plan. medication given.
--- NOTE | 2017-10-13 09:40 | NUR ---
medication given. patient sitting in chair. active bs. had loose stool in br. plan to shower this morning. lungs clear. son in room. updated on plan of care.
--- NOTE | 2017-10-13 10:46 | NUR ---
PATIENT UP TO SHOWER WITH STAND BY ASSIST. ORAL CARE DONE. PATIENT SITTING UP IN CHAIR WITH CLOTHES FROM HOME ON. CALL BUTTON IN REACH.
--- NOTE | 2017-10-13 11:13 | DS ---
[facility] [address] [place], [place] [address] Signed ADMISSION DATE: 10/04/2017 DISCHARGE DATE: 10/13/2017 FINAL DIAGNOSIS: Sigmoid volvulus. PROCEDURE: Low anterior resection with colorectal Le anastomosis. HISTORY OF PRESENT ILLNESS: Won is a 76-year-old gentleman, who went several days with no BM. Laxatives were of no help. He had significant generalized abdominal distention and tympany. He therefore came to emergency room for evaluation. In the emergency room, he had mild tenderness, but no peritonitis. White count was normal. CT scan showed the sigmoid volvulus. I was asked to see him as a general surgeon on-call. HOSPITAL COURSE: I met with Won in the emergency room and we took him directly down to our endoscopy suite for a limited colonoscopy and we were able to reduce the volvulus and evacuate large amounts of air. Proximal to the volvulus, he had quite a bit of liquid stool. We hydrated him overnight and the next morning, he went through his bowel prep. He got through at least 80% of that. Late in the day, he started to develop recurrent abdominal distention consistent with the fact that he had a recurrent volvulus. We had left him on antibiotics throughout the hospital stay. Based on the above then, we took him to surgery on 10/06/2017, for his low anterior resection with Le side-to-end colorectal anastomosis. We did that hand sewn in 2 layers. He had large amounts of air and liquid flatus out immediately following the surgery. He continued to do well other than some urinary retention. He had to have Ma catheter reinserted and we had to resume his Flomax. Dr. Almeida had covered in my absence for few days while I was gone for the holidays. Upon my return, we were able to discontinue his antibiotics and we had taken out the Ma catheter for a voiding trial. Fortunately, he did very well. He has had several spontaneous episodes of urination and his postvoid residuals have all been under 100. He has been tolerating diet and continues to have several bowel movements a day and lots of flatus. His incision is healing well and the abdominal exam is completely benign. Because of his progress then, we are going to be discharging him home today. DISCHARGE PLANS AND MEDICATIONS: We will send Won home with a prescription for [place] 5/325, 1 to 2 tablets p.o. q.4 to 6 hours p.r.n. pain. We will dispense 30 tablets with no refills. He can resume all his chronic medications including his ascorbic acid, aspirin, calcium, ciprofloxacin eye drops, diclofenac eye drops, iron sulfate, Lasix, levothyroxine, magnesium hydroxide, his Electronically Signed By: MARÍA EDOUARD MD 10/13/17 1113 PATIENT NAME: WON TELLO DISCHARGE SUMMARY DATE OF : 40 PHYSICIAN: MARÍA EDOUARD MD REPORT #: [id number] REPORT IS CONFIDENTIAL AND NOT TO BE RELEASED WITHOUT AUTHORIZATION [address] [address] Signed metformin, his multivitamin, his omeprazole, potassium chloride, prednisolone eye drops, his Metamucil, and his Flomax along with tramadol as needed for pain. I have told Won that he can perform his activities of daily living including walking up and down stairs and showering and bathing as usual. He should not lift over about 25 pounds this month 50 pounds next month and after that, no restrictions. We are going to remove half of the luis e today and we will take the other half out when he returns to the office in about a week or so. I have reviewed all this with Won and his son several times. They have expressed understanding. They agreed above plan. María Edouard MD ALB/QUENTINL /[id number] cc: JOSE Franco Electronically Signed By: MARÍA DEOUARD MD 10/13/17 1113 PATIENT NAME: WON TELLO DISCHARGE SUMMARY DATE OF : 40 PHYSICIAN: MARÍA EDOUARD MD REPORT #: [id number] REPORT IS CONFIDENTIAL AND NOT TO BE RELEASED WITHOUT AUTHORIZATION
--- NOTE | 2017-10-13 11:21 | NUR ---
PATIENT SITTING IN CHAIR READING. AWAITING FAMILY TO GET HERE FOR DISCHARGE.
--- NOTE | 2017-10-13 11:49 | NUR ---
patient assisted back from br. patient voided. assisted back to chair. set up for lunch. awaiting family for discharge. plan to be here by 1300. patients belongings packed. eye drops given. no pain at this time.
--- NOTE | 2017-10-13 14:29 | NUR ---
SHORT VISIT TODAY. PT EATING LUNCH AND HE SEEMED TO BE ENJOYING IT. HE DID MENTIONED THAT HE SLEPT WELL, WILL CONTINUE TO FOLLOW
== END 2017-10-13 14:00 | disposition home or self-care (01) | DRG 331 ==
LOC: ED 14:35 → MS 20:36
PROVIDERS: ADMIT Colon & Rectal Surgery
PROC: 0DTN8ZZ Resection of Sigmoid Colon, Via Natural or Artificial Opening Endoscopic (ICD-10-PCS; principal; 2017-10-04 20:51)
DX: K56.2 Volvulus (principal); E11.9 Type 2 diabetes mellitus without complications; Z79.4 Long term (current) use of insulin; I10 Essential (primary) hypertension; K21.9 Gastro-esophageal reflux disease without esophagitis; D64.9 Anemia, unspecified; E87.6 Hypokalemia; K59.00 Constipation, unspecified; N40.0 Benign prostatic hyperplasia without lower urinary tract symptoms; E03.9 Hypothyroidism, unspecified; E86.0 Dehydration
CPT/HCPCS: 00790; 00810; 36415; 64488; 74177; 76942; 80048; 80053; 83690; 83735; 84100; 84132; 85025; 93005; 93010; 94760; 94762; J0692; J0696; J1170; J1644; J2250; J2405; J2704; J2765; J3010; J3475; J3480; J7040; J7120; Q9967

== ENCOUNTER 2018-02-01 21:36 | Emergency (ER) | payer OTHER ==
[~2018-02-01] VITALS: Ht 177.8 cm; Wt 79.8 kg
[~2018-02-01 21:36] MED LIST changes: +CILOXAN5 ML OPTH; +DICLOFENAC SOD2.5 ML OPTH; +NORCO 5-325 TA1 EACH PO; +PREDNISOLONE ACE5 ML OPTH
== END 2018-02-01 22:45 | disposition home or self-care (01) ==
LOC: ED 21:36
DX: K64.9 Unspecified hemorrhoids (principal); Z79.84 Long term (current) use of oral hypoglycemic drugs; Z79.899 Other long term (current) drug therapy; Z79.82 Long term (current) use of aspirin
CPT/HCPCS: 99282

== ENCOUNTER 2021-01-17 02:00 | Emergency (ER) | payer OTHER ==
[~2021-01-17] VITALS: Ht 177.8 cm; Wt 75.9 kg
== END 2021-01-17 06:00 | disposition home or self-care (01) ==
LOC: ED 02:00
DX: R10.9 Unspecified abdominal pain (principal); E11.9 Type 2 diabetes mellitus without complications; D64.9 Anemia, unspecified; E03.9 Hypothyroidism, unspecified; Z79.899 Other long term (current) drug therapy; Z79.82 Long term (current) use of aspirin; Z79.891 Long term (current) use of opiate analgesic
CPT/HCPCS: 71260; 74177; 80053; 81001; 85025; 99284-25; J7040; Q9967

== ENCOUNTER 2022-08-28 07:48 | Day surgery (SDC) | payer OTHER ==
[~2022-08-28] VITALS: Ht 177.8 cm; Wt 74.1 kg
[~2022-08-28 07:48] MED LIST changes: +FOLIC ACID1 MG PO; +METHOTREXATE2.5 MG PO; +WELCHOL625 MG PO; +[UNRECOGNIZED DRUG - OTHER] PO
--- NOTE | 2022-08-28 09:36 | NUR ---
08/28/22 0936 Kelsey Tomlin 0919 PATIENT ARRIVES TO PACU RESTING WITH EYES CLOSED, NODS HEAD TO VERBAL STIMULI. RESP EVEN AND UNLABORED, NC AT 3 LITERS.
--- NOTE | 2022-08-31 07:04 | OR ---
[facility] [address] [place], [place] [address] Signed DATE OF OPERATION: 08/28/2022 SURGEON: María Edouard MD PREOPERATIVE DIAGNOSES: 1. Personal history of colonic polyps in 2012 at age 71. 2. Long redundant colon in 2014 at age 74. 3. Resection of sigmoid volvulus in 2017 at age 76. 4. Probable negative colonoscopy in 2019 at [place], [place]. 5. Chronic iron-deficiency anemia. 6. Diarrhea. POSTOPERATIVE DIAGNOSES: 1. Poor bowel prep. 2. Colorectal anastomosis, unremarkable. PROCEDURE: Sigmoidoscopy up to 30 cm with cold biopsies of the left colon and rectum. ESTIMATED BLOOD LOSS: None. INDICATIONS: Won is an 81-year-old gentleman, asked to come to see me for his diarrhea. He had two sc[place] [address] Cardenas. He had a fairly large adenomatous polyp removed just above the anal canal. He was asked to follow up in three years. I helped him with upper and lower endoscopy in 2014 at the age of 74. He had mild gastritis with a negative CLOtest. He had a poor bowel prep. We had to repeat the prep and repeat his colonoscopy. We found a very long redundant colon and an adenomatous polyp. He had a barium enema x-ray, which was unremarkable. We had asked him to follow up in 5 years. He came into the hospital in 2016 at the age of 76 with a sigmoid volvulus. I had performed sigmoid resection with a Le side-to-end colorectal anastomosis. He said he has done well since that time. He is quite certain that in 2019, he went up to [place], [place] for an outpatient negative colonoscopy. Unfortunately, we do not have that actual record. He has been working closely with his primary care provider on various medical issues. It sounds like he stopped his diabetic medications and his blood sugars have been fine. He has been on a fairly strict diet apparently. He has been on iron for his chronic anemia. It sounds like he suffers with chronic constipation, but more recently he has had diarrhea. He had his gallbladder out many years ago. He has been given Lomotil to help decrease the diarrhea. He said he has Electronically Signed By: MARÍA EDOUARD MD 08/31/22 0704 PATIENT NAME: WON TELLO OPERATIVE REPORT DATE OF : 40 REPORT #: [id number] PHYSICIAN: MARÍA EDOUARD MD PCP: [facility] REPORT IS CONFIDENTIAL AND NOT TO BE RELEASED WITHOUT AUTHORIZATION [facility] [address] [place], [place] [address] Signed been losing weight because he has cut so many of the food choices out. He and his son came to the office and were talking mainly about his diet. We decided we would go ahead and do some basic stool studies which are still pending. He wanted to repeat the colonoscopy with biopsies. I had given him a pamphlet on colonoscopy. They are very familiar with the test. They understand there is risk including, but not limited to gas bloating, crampy abdominal pain, bleeding, perforation requiring surgery, and missed diagnosis. We also reviewed his bowel prep in detail. Also because of his advanced age and frail nature and various medical issues, we did ask for monitored anesthesia care that proved to be a alarcon decision. Wno and his son had expressed understanding and wished to proceed. DESCRIPTION OF PROCEDURE: Won was taken into our endoscopy suite and placed in the left lateral decubitus position. 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 A digital rectal exam was performed and this was unremarkable. There were no external hemorrhoids. He had good sphincter tone. There were no masses. The adult colonoscope had been introduced. We immediately encountered a large amount of liquid particulate brown stool. We made our way up to the top of the rectum and the anastomosis is quite healthy. We turned and went up to the left colon, just 10 or 15 cm at most before we could not pass the scope any further due to heavy liquid particulate stool matter. It was way too heavy to suction through, we could see around it. The left colon and the rectum appeared to be quite healthy. We went ahead and took two cold biopsies at the left colon and two out of the rectum. Because of the large amount of stool in his rectum, we did not retroflex the scope. When the scope was withdrawn, it appeared to be unremarkable as we came through the anal canal. After this, the gas was suctioned out, colonoscope removed. Won tolerated the procedure quite well. RECOMMENDATIONS: I will see Won back in my office in 7 to 14 days to review his results and stool studies. If he wants to repeat the colonoscopy, he is going to have to do a double bowel prep. MD DORA Billy/QUENTINL /[id number] Electronically Signed By: MARÍA EDOUARD MD 08/31/22 0704 PATIENT NAME: WON TELLO OPERATIVE REPORT DATE OF : 40 REPORT #: [id number] PHYSICIAN: MARÍA EDOUARD MD PCP: [facility] REPORT IS CONFIDENTIAL AND NOT TO BE RELEASED WITHOUT AUTHORIZATION [facility] [address] [facility] [place] [address] Signed cc: [facility] Patient Chart María Edouard MD Copies: [facility] MARÍA EDOUARD MD ~ Electronically Signed By: MARÍA EDOUARD MD 08/31/22 0704 PATIENT NAME: WON TELLO OPERATIVE REPORT DATE OF : 40 REPORT #: [id number] PHYSICIAN: MARÍA EDOUARD MD PCP: [facility] REPORT IS CONFIDENTIAL AND NOT TO BE RELEASED WITHOUT AUTHORIZATION
--- NOTE | 2022-09-01 13:03 | PATH ---
[facility] [address] [place], [place] [address] Signed SPECIMEN(S): A RANDOM COLON BIOPSY SPECIMEN(S): B RECTAL BIOPSY SPECIMEN SOURCE: A. RANDOM COLON BIOPSY B. RECTAL BIOPSY CLINICAL HISTORY: Diarrhea; iron deficiency anemia; history of polyps FINAL PATHOLOGIC DIAGNOSIS: A. Random colon biopsies: - Benign colonic mucosa, negative for pathologic inflammation. B. Rectal biopsy: - Benign colonic mucosa, negative for specific pathologic inflammation. JVR:[facility]:C2NR MICROSCOPIC EXAMINATION: Histologic sections of all submitted blocks are examined by light microscopy. These findings, together with the gross examination, support the pathologic diagnosis. GROSS DESCRIPTION: Two specimens are received in two containers, labeled "PM." A. The specimen, labeled "PM, random colon biopsy," is received in formalin and consists of two adan soft tissue fragments that measure 0.3 to 0.5 cm in greatest dimension. The specimen is entirely submitted in cassette (A1). B. The specimen, labeled "PM, rectal biopsy," is received in formalin and consists of two adan soft tissue fragments that measure 0.2 to 0.3 cm in greatest dimension. The specimen is entirely submitted in cassette (B1). HH (under the direct supervision of a pathologist) The Gross Description was prepared using a voice recognition system. The report was reviewed for accuracy; however, sound-alike word errors, addition and/or deletions may occur. If there is any question about this report, please contact Client Services. PERFORMING LABORATORY: The technical component was performed by [facility], [address] [place] [id number] (CLIA# [id number]). Professional interpretation was PATIENT NAME: WON TELLO PATHOLOGY DATE OF : 40 REPORT #: [id number] PHYSICIAN: [facility] PCP: [facility] REPORT IS CONFIDENTIAL AND NOT TO BE RELEASED WITHOUT AUTHORIZATION [facility] [address] [place], [place] [address] Signed performed by [facility] - [address] [place] [address] (CLIA#: [id number]). Diagnostician: Pa Polanco MD Pathologist Electronically Signed 09/01/2022 Copies: ~ PATIENT NAME: WON TELLO PATHOLOGY DATE OF : 40 REPORT #: [id number] PHYSICIAN: [facility] PCP: [facility] REPORT IS CONFIDENTIAL AND NOT TO BE RELEASED WITHOUT AUTHORIZATION
== END 2022-08-28 10:25 | disposition home or self-care (01) ==
LOC: DS 07:48 → OPS 07:48 → DS 09:45 → OPS 10:25
PROVIDERS: ATTEND Colon & Rectal Surgery
PROC: 0DBN8ZZ Excision of Sigmoid Colon, Via Natural or Artificial Opening Endoscopic (ICD-10-PCS; 2022-08-28)
PROC: 0DBP8ZZ Excision of Rectum, Via Natural or Artificial Opening Endoscopic (ICD-10-PCS; principal; 2022-08-28 09:00)
DX: R19.7 Diarrhea, unspecified (principal); D50.9 Iron deficiency anemia, unspecified; Z86.010 Personal history of colon polyps; I10 Essential (primary) hypertension; E03.9 Hypothyroidism, unspecified; E11.9 Type 2 diabetes mellitus without complications
CPT/HCPCS: J0690; J2704; J7121

== ENCOUNTER 2023-04-07 10:25 | Day surgery (SDC) | payer OTHER ==
[2023-04-06 13:15] VITALS: BP 121/58
[~2023-04-07] VITALS: Ht 177.8 cm; Wt 72.7 kg
[~2023-04-07 10:25] MED LIST changes: +IRON325 M1 PO; +LEVOTHYROXINE25 MC1 PO; +LOMOTIL TABLET1 EACH PO; +PROSCAR5 MG PO; +VITAMIN C500 M5 PO
[2023-04-07 10:44] VITALS: BP 149/62
[2023-04-07 13:05] VITALS: BP 155/61
--- NOTE | 2023-04-08 00:25 | EKG ---
[facility] [address] [place] [address] Signed Sinus bradycardia Otherwise normal ECG When compared with ECG of 24-AUG-2022 09:25, No significant change was found Confirmed by Donald Collazo MD () on 04/08/2023 12:25:40 AM Electronically Signed By: DONALD COLLAZO MD 04/08/23 0025 PATIENT NAME: ELISHAWON Electrocardiogram DATE OF : 40 PHYSICIAN: DONALD COLLAZO MD REPORT #: [id number] REPORT IS CONFIDENTIAL AND NOT TO BE RELEASED WITHOUT AUTHORIZATION
--- NOTE | 2023-04-09 16:05 | PATH ---
[facility] [address], [place] [address] Signed SPECIMEN(S): A BONE MARROW - CORE SPECIMEN(S): B BONE MARROW - ASPIRATION SPECIMEN(S): C FLOW CYTOMETRY, BM ETDA CLINICAL HISTORY: Bone marrow biopsy. 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 DIAGNOSIS SUMMARY: Peripheral blood - Mild normocytic, normochromic anemia. Bone marrow, aspirate smears, clot section/cell block, and trephine biopsy: - Normocellular bone marrow with trilineage progressive hematopoiesis. - Negative for significant dyspoiesis. 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 - Increased storage iron, negative for ring sideroblasts. - Please see Diagnostic Comment. DIAGNOSTIC COMMENT: Morphologic evaluation of bone marrow shows no significant dyspoiesis identified. Concurrent flow cytometry shows variable marking of myeloid and monocyte with slightly increased expression of CD56 and a subset of T-cells with co-expression of CD3 and CD56. Findings are not specific. Cytogenetic study and FISH for MDS are pending and will be reported in an addendum. Also, T-cell rearrangement is pending for further assessment of a T-cell process and will be reported in an addendum. NA:smn:C2NR PERIPHERAL BLOOD: HEMOGRAM ([facility]; 04/07/2023): WBC 5.5 K/uL, RBC 3.41 M/uL, HGB 10.4 g/dL, HCT 31.5%, MCV 92.5 fL, MCH 30.7 pg, MCHC 33.2 g/dL, RDW 16.8%, PLT 192 K/uL, MPV 8.7 fL. DIFFERENTIAL COUNT: 72% neutrophils, 20% lymphocytes, 3%, monocytes, 4% eosinophils, and 1% basophils. Review of peripheral blood smear and CBC data demonstrate that the RBCs are slightly decreased in number and are normocytic, normochromic with mild anemia present. The WBCs are normal in number and distribution. The neutrophils show unremarkable morphology. No immature cells are seen. The platelets are normal in number and unremarkable in morphology. PATIENT NAME: WON TELLO PATHOLOGY DATE OF : 40 REPORT #: [id number] PHYSICIAN: FREDI ALCANTARA PCP: TOLU BLACK REPORT IS CONFIDENTIAL AND NOT TO BE RELEASED WITHOUT AUTHORIZATION [facility] [address], [place] [address] Signed BONE MARROW: BONE MARROW ASPIRATE SMEARS: The bone marrow aspirate smears are adequately cellular for evaluation. Trilineage hematopoiesis is present with progressive ordinary maturation. There is no increase in blasts. The M:E ratio appears normal. There is no dyspoiesis identified. The megakaryocytes are scattered and appear normal in number and morphology. BONE MARROW DIFFERENTIAL COUNT: 1% blasts, 1% promyelocytes, 13% myelocytes, 29% segmented neutrophils, 9% lymphocytes, 1% monocytes, 5%, eosinophils, 1% plasma cells, and 40% erythroid. BONE MARROW CORE BIOPSY AND CLOT SECTION: The bone marrow core biopsy demonstrates normocellular bone marrow for age with an averaging cellularity of 20%. Trilineage hematopoiesis is present. There are no lymphoid aggregates, granulomas, or metastatic tumor cells present. The megakaryocytes are scattered and appear normal in number and distribution. The clot section shows similar findings. SPECIAL STAINS (with appropriately active control): - Iron (aspirate smears): Increased storage iron, negative for ring sideroblasts. - Iron (block B1): Storage iron present, negative for ring sideroblasts. - Reticulin stain (block A1): Increased reticulin fibrosis (MF-1). IMMUNOHISTOCHEMICAL STAINS (with appropriately active control): (Block A1): - CD34: Highlights scattered positive cells (1%). - CD117: Highlights scattered positive cells (1%). - MPO: Highlights myeloid precursors. - CD71: Highlights erythroid precursors, increased. - Factor VIII: Highlights myeloid precursors. (Block B1): - CD34: Highlights scattered positive cells (1%). - CD138: Highlights scattered plasma cells (2%). NA:smn FLOW CYTOMETRY: Bone marrow aspirate, flow cytometry: - No increase in blasts (0.7% myeloblasts). - Myeloid with variable marking. - No atypical B-cell population. - T-cell subset with variable marking. - Monocytes with increased CD56 expression. - See Comment. COMMENT: PATIENT NAME: WON TELLO PATHOLOGY DATE OF : 40 REPORT #: [id number] PHYSICIAN: FREDI PATHOLOGY PCP: TOLU BLACK REPORT IS CONFIDENTIAL AND NOT TO BE RELEASED WITHOUT AUTHORIZATION [facility] [address], [place] [address] Signed No increase in blasts present. The myeloid show decreased CD10 expression and some increased CD56 expression. The monocytes also show an increase in CD56 expression. Correlation with clinical, morphologic, and genetic findings is recommended for full interpretation and to assess for disease processes not fully examined by flow cytometry analysis, including myelodysplastic syndrome and myeloproliferative neoplasm. A T-cell subset (2% of total events) shows co-expression of CD3 and CD56 with dimmer CD5 expression. Findings are not specific and could be seen with reactive and neoplastic conditions. Correlation with morphologic and molecular findings is needed for further assessment of T-cell process. FLOW CYTOMETRY ANALYSIS: FLOW DIFFERENTIAL (% Total CD45 vs. SSC gating): Myeloid 83%; Lymphoid 8%; Monocyte 2%; Dim CD45/Blast: 0.7%. Cell Count: 6.6 x 10*3/uL. POPULATION ANALYSIS: BLASTS: Analysis of the dim CD45 gate demonstrates 0.7% myeloblasts by CD34/CD117 and 0.3% hematogones. LYMPHOID CELLS: The lymphocyte gate comprises 8% of total events and includes 85% T-cells with a CD4:CD8 ratio of 0.5:1. A T-cell subset is detected (25% of lymphocytes, 2% of total events) co-expressing CD3 and CD56 with dimmer CD5 expression. 7% of lymphocytes are polyclonal B-cells with a kappa:lambda ratio of 1.7:1. The remainders are NK-cells. MYELOID CELLS: The myeloid population comprises 83% of the total events. Some decreased CD10 expression and some increased CD56 expression is observed. MONOCYTES: The monocyte population comprises 2% of the total events. Monocytes are not increased. Some increased CD56 expression is observed. PLASMA CELLS: 0.7% plasma cells are detected in the screening gate neg-dimCD45/CD38. Plasma cells are CD45 dim and positive for CD19. MAST CELLS: 0.2% of total events are mast cells (n=42). ANTIBODIES USED: KAPPA, LAMBDA, CD20, CD10, CD19, CD23, CD38, CD16, CD56, CD8, CD5, CD2, CD4, CD7, CD3, CD14, CD33, CD13, HLADR, CD34, CD117, CD15, CD45: TOTAL ANTIBODIES USED: 23. JNB FINAL DIAGNOSIS PERFORMED BY: Raj Fernandez MD, Apr 08 2023 3:26PM CYTOGENETICS: PATIENT NAME: WON TELLO PATHOLOGY DATE OF : 40 REPORT #: [id number] PHYSICIAN: FREDI ALCANTARA PCP: TOLU BLACK REPORT IS CONFIDENTIAL AND NOT TO BE RELEASED WITHOUT AUTHORIZATION [facility] [address], [place] [address] Signed Pending, to be reported by addendum. FISH ANALYSIS: Pending, to be reported by addendum. T-CELL (GAMMA) GENE REARRANGEMENT PCR ANALYSIS: Pending, to be reported by addendum. GROSS DESCRIPTION: Two specimens are received in two containers. A. The specimen, labeled and designated "Mauthorn, bone marrow core biopsy," is received in formalin and consists of a red-adan core of bone with attached red-brown clot-like material (0.8 x 0.5 x 0.3 cm in aggregate). The specimen is submitted entirely in cassette (A1) following decalcification in Immunocal. B. The specimen, labeled and designated "[place]orn, bone marrow clot biopsy," is received in formalin and consists of a portion of red-brown clot-like material (2.0 x 0.9 x 0.3 cm in aggregate). The specimen is submitted entirely in cassette (B1). RPMI was received, containing a core of bone, and sent to [place]. HUNG (under the direct supervision of a pathologist) The Gross Description was prepared using a voice recognition system. The report was reviewed for accuracy; however, sound-alike word errors, addition and/or deletions may occur. If there is any question about this report, please contact Client Services. ADDITIONAL NOTES: Immunohistochemical and/or in situ hybridization studies were performed on this case with the appropriate positive controls that react as expected. This test was developed and its performance characteristics determined by [facility]. It has not been cleared or approved by the U.S. Food and Drug Administration. The FDA has determined that such clearance or approval is not necessary. This test is used for clinical purposes. It should not be regarded as investigational or for research. [facility] is certified under the Clinical Laboratory Improvement Amendments of 1988 (CLIA) as qualified to perform high complexity clinical laboratory testing. This assay has not been validated for specimens that have been decalcified. In this case, certain antibodies were performed by both immunohistochemistry and flow cytometry analysis because flow cytometry analysis did not fully explain all the light microscopic findings. PATIENT NAME: WON TELLO PATHOLOGY DATE OF : 40 REPORT #: [id number] PHYSICIAN: FREDI ALCANTARA PCP: TOLU BLACK REPORT IS CONFIDENTIAL AND NOT TO BE RELEASED WITHOUT AUTHORIZATION [address] [address] Signed Immunohistochemistry aided in the analysis. Both methods are deemed medically necessary in this case. This test was developed and its performance characteristics determined by [facility]. It has not been cleared or approved by the US Food and Drug Administration. The FDA does not require this test to go through premarket FDA review. This test is used for clinical purposes. It should not be regarded as investigational or for research. This laboratory is certified under the Clinical Laboratory Improvement Amendments (CLIA) as qualified to perform high complexity clinical laboratory testing. PERFORMING LABORATORY: The technical preparation was performed by [facility], [address] [place] [address] (CLIA#: [id number]). Professional interpretation was performed by [facility], [address] [place] [address] (CLIA# [id number]). Technical component was performed by [facility], [address] [place] [address] (CLIA# [id number]). Professional interpretation was performed by [facility], [address] [place] [address] (CLIA# [id number]). IMAGES: [id number]: [id number]: [id number] Diagnostician: Raj Fernandez MD Pathologist Electronically Signed 04/09/2023 Copies: ~ PATIENT NAME: WON TELLO PATHOLOGY DATE OF : 40 REPORT #: [id number] PHYSICIAN: FREDI PATHOLOGY PCP: TOLU BLACK REPORT IS CONFIDENTIAL AND NOT TO BE RELEASED WITHOUT AUTHORIZATION
== END 2023-04-07 13:33 | disposition home or self-care (01) ==
LOC: DS 10:25 → OPS 10:25 → DS 12:00 → OPS 12:00
PROVIDERS: ATTEND Specialist
PROC: 079T3ZX Drainage of Bone Marrow, Percutaneous Approach, Diagnostic (ICD-10-PCS; principal; 2023-04-07 12:00)
DX: D61.9 Aplastic anemia, unspecified (principal)
CPT/HCPCS: 01112; 80053; 82607; 82728; 82746; 83550; 83615; 84403; 85025; 85045; 85651; 86038; 86140; 86431; 93005; 93010; J2704; J7121

== ENCOUNTER 2025-07-09 15:31 | Emergency (ER) | payer OTHER ==
[~2025-07-09] VITALS: Ht 177.8 cm; Wt 63.0 kg
[2025-07-09] MEDS ORDERED: SODIUM CHLORIDE 0.9% 500 ML IV ONE (18:30)
[2025-07-09 18:55] LABS: BASOPHILS 1.1 % (0.2-1.2); EOSINOPHILS 0.4 % (0.8-7.0); LYMPHOCYTES 13.9 % (21.8-53.1); MCH 30.8 PG (25.7-32.2); MCHC 32.3 g/dL (32.3-36.5); MCV 95.5 fL (79.0-92.2); MONOCYTES 6.6 % (5.3-12.2); NEUTROPHILS 77.8 % (34.0-67.9); RBC 2.92 M/uL (4.63-6.08)
[2025-07-09 19:12] LABS: ALT (SGPT) 12.0 U/L (14-59); AST (SGOT) 17.0 U/L (15-37); GLOMERULAR FILTRATION RATE,EST 85.0 mL/min (>60); PROTEIN, TOTAL 6.3 g/dL (6.4-8.2); UREA NITROGEN 16.0 mg/dL (7-18)
[2025-07-09] MEDS ORDERED: LACTATED RINGER'S 1,000 ML IV ONE (19:45)
[2025-07-09] MEDS ORDERED: SODIUM CHLORIDE 0.9% 1,000 ML IV PRN (20:00)
[2025-07-09 20:09] LABS: TSH, 3RD GENERATION 4.193 uIU/mL (0.358-3.740)
[2025-07-09] MEDS ORDERED: LIDOCAINE 2% VISCOUS 6 ML SYR TOP ONE (23:45)
[2025-07-10 00:09] LABS: BLOOD/HGB, URINE TRACE-I (Negative); KETONE, URINE NEGATIVE (Negative); LEUK ESTERASE, URINE NEGATIVE (negative); NITRITE, URINE NEGATIVE (negative)
[2025-07-10 00:15] LABS: EPITHELIAL CELLS, URINE SQUAMOUS 1+ /lpf (0-1+)
[2025-07-10 00:17] LABS: BACTERIA, URINE RARE /hpf (negative); CASTS, URINE NONE SEEN \\lpf; CRYSTALS, URINE NONE SEEN (0-1+); REFLEX CULTURE, URINE No (No)
[2025-07-10 00:50] VITALS: BP 112/49
== END 2025-07-10 00:50 | disposition home or self-care (01) ==
LOC: ED 15:31
PROVIDERS: Emergency Medicine; Internal Medicine
DX: E86.0 Dehydration (principal); D64.9 Anemia, unspecified; E11.9 Type 2 diabetes mellitus without complications; Z79.899 Other long term (current) drug therapy
CPT/HCPCS: 36415; 51702; 51798; 80053; 81001; 83735; 83880; 84443; 84484; 85025; 87045; 87046; 96360; 96361; 99284-25; J7030; J7040

== ENCOUNTER 2025-07-12 16:59 | Emergency (ER) | payer OTHER ==
[~2025-07-12] VITALS: Ht 177.8 cm; Wt 48.9 kg
--- OUTSIDE RECORDS SUMMARY | 2025-07-12 17:06 | XMS ---
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 Pradip VISIT COUNT (12 MO.) 2 [facility] TOTAL 2 NOTE: Visits indicate total known visits. 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
[2025-07-12] MEDS ORDERED: SODIUM CHLORIDE 0.9% 500 ML IV ONE (17:30)
[2025-07-12 17:45] LABS: BASOPHILS 0.4 % (0.2-1.2); EOSINOPHILS 0.2 % (0.8-7.0); LYMPHOCYTES 6.3 % (21.8-53.1); MCH 31.7 PG (25.7-32.2); MCHC 33.1 g/dL (32.3-36.5); MCV 95.8 fL (79.0-92.2); MONOCYTES 3.9 % (5.3-12.2); NEUTROPHILS 88.8 % (34.0-67.9); RBC 2.62 M/uL (4.63-6.08)
[2025-07-12 17:59] LABS: ALT (SGPT) 13.0 U/L (14-59); AST (SGOT) 14.0 U/L (15-37); GLOMERULAR FILTRATION RATE,EST 74.0 mL/min (>60); PROTEIN, TOTAL 5.9 g/dL (6.4-8.2); UREA NITROGEN 16.0 mg/dL (7-18)
[2025-07-12] MEDS ORDERED: POTASSIUM CHLORIDE 20 MEQ/15 ML CUP PO ONE (19:45)
[2025-07-12] MEDS ORDERED: Calcium Gluconate in NS 1,000 MG/50 ML BAG IV ONE (19:45)
[2025-07-13 01:01] VITALS: BP 115/52
== END 2025-07-13 01:05 | disposition home or self-care (01) ==
LOC: ED 16:59
PROVIDERS: Emergency Medicine
DX: K52.9 Noninfective gastroenteritis and colitis, unspecified (principal); E83.51 Hypocalcemia; E87.6 Hypokalemia; D53.9 Nutritional anemia, unspecified; E11.9 Type 2 diabetes mellitus without complications; E03.9 Hypothyroidism, unspecified; Z79.890 Hormone replacement therapy; Z79.899 Other long term (current) drug therapy
CPT/HCPCS: 80053; 83735; 85025; 87045; 87046; 96361; 96365; 96366; 99284-25; A9270; J7040

== ENCOUNTER 2025-09-14 17:48 | Inpatient (IN) | payer MEDICARE, OTHER ==
[~2025-09-14] VITALS: Ht 177.8 cm; Wt 60.7 kg
--- NOTE | ~2025-09-14 | EKG ---
[facility] [address] [facility] [place], [place] [address] Draft EK completed, results pending confirmation PATIENT NAME: WON TELLO Electrocardiogram DATE OF : 40 PHYSICIAN: PRELIMINARY REPORT #: [id number] REPORT IS CONFIDENTIAL AND NOT TO BE RELEASED WITHOUT AUTHORIZATION
--- OUTSIDE RECORDS SUMMARY | ~2025-09-14 | XMS | Continuity of Care Document ---
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 Encounters No information. Functional Status No information. Immunizations No information. Medications + + + + | date | description | facility | + + + + | (no date) | METHOTREXATE SODIUM | [facility] | | | | [facility] | + + + + | (no date) | METHOTREXATE SODIUM | [facility] | | | | [facility] | + + + + | (no date) | DIPHENOXYLATE HCL/ATROPINE | [facility] | | | | [facility] | + + + + | (no date) | DIPHENOXYLATE HCL/ATROPINE | [facility] | | | | [facility] | + + + + | (no date) | CLINDAMYCIN HCL | [facility] | | | | [facility] | + + + + | (no date) | CLINDAMYCIN HCL | [facility] | | | | [facility] | + + + + | (no date) | OMEPRAZOLE | [facility] | | | | [facility] | + + + + | (no date) | OMEPRAZOLE | [facility] | | | | [facility] | + + + + | (no date) | Ascorbic Acid | [facility] | | | | [facility] | + + + + | (no date) | Ascorbic Acid | [facility] | | | | [facility] | + + + + | (no date) | FINASTERIDE | [facility] | | | | [facility] | + + + + | (no date) | FINASTERIDE | [facility] | | | | [facility] | + + + + | (no date) | CALCIUM CARBONATE | [facility] | | | | [facility] | + + + + | (no date) | CALCIUM CARBONATE | [facility] | | | | [facility] | + + + + | (no date) | FERROUS SULFATE | [facility] | | | | [facility] | + + + + | (no date) | FERROUS SULFATE | [facility] | | | | [facility] | + + + + | (no date) | FOLIC ACID | [facility] | | | [facility] | + + + + | (no date) | FOLIC ACID | [facility] | | | | [facility] | + + + + | (no date) | LISINOPRIL | [facility] | | | | [facility] | + + + + | (no date) | LISINOPRIL | [facility] | | | | [facility] | + + + + | (no date) | LORATADINE | [facility] | | | [facility] | + + + + | (no date) | LORATADINE | [facility] | | | | [facility] | + + + + | (no date) | ASCORBIC ACID | [facility] | | | | [facility] | + + + + | (no date) | ASCORBIC ACID | [facility] | | | | [facility] | + + + + | (no date) | DICLOFENAC SODIUM | [facility] | | | | [facility] | + + + + | (no date) | DICLOFENAC SODIUM | [facility] | | | | [facility] | + + + + | (no date) | METFORMIN HCL | [facility] | | | [facility] | + + + + | (no ) | METFORMIN HCL | [facility] | | | [facility] | + + + + | (no date) | TAMSULOSIN HCL | [facility] | | | | [facility] | + + + + | (no ) | TAMSULOSIN HCL | [facility] | | | | [facility] | + + + + | (no date) | Levothyroxine Sodium | [facility] | | | | [facility] | + + + + | (no date) | Levothyroxine Sodium | [facility] | | | | [facility] | + + + + Problems + + + + | | description | facility | + + + + | 2025-07-10 00:00 | Anemia | [facility] | | | | [facility] | + + + + | 2025-07-10 00:00 | Anemia | [facility] | | | | [facility] | + + + + | 2025-07-10 00:00 | Dehydration | [facility] | | | | [facility] | + + + + | 2025-07-10 00:00 | Dehydration | [facility] | | | | [facility] | + + + + | 2025-07-12 00:00 | Hypocalcemia | [facility] | | | | [facility] | + + + + | 2025-07-12 00:00 | Chronic diarrhea | [facility] | | | | [facility] | + + + + Procedures No information. Results/Labs +--------+--------+ +---------+--------+---------+ | test | date | facility | value | unit | notes | +--------+--------+ +---------+--------+---------+ + + | Result panel 1 | + + + + + +--------+ + + | WBC # Bld | 2025-07-09 | | 4.69 | (missing) | (missing) | | Auto | 18:45:07 [facility] | | | | + + + +--------+ + + + + | Result panel 2 | + + + + + +--------+ + + | Lymphocytes | 2025-07-09 | | 13.9 | (missing) | (missing) | | NFr Bld | 18:45:07 | [facility] | | | | | Auto | [facility] | | | | + + + +--------+ + + + + | Result panel 3 | + + + + + +-------+ + + | Monocytes | 2025-07-09 | | 6.6 | (missing) | (missing) | | NFr Bld Auto | 18:45:07 | [facility] | | | | + + + +-------+ + + + + | Result panel 4 | + + + + + +-------+ + + | Eosinophil | 2025-07-09 | | 0.4 | (missing) | (missing) | | NFr Bld Auto | 18:45:07 | [facility] | | | | + + + +-------+ + + + + | Result panel 5 | + + + + + +-------+ + + | Basophils | 2025-07-09 | | 1.1 | (missing) | (missing) | | NFr Bld Auto | 18:45:07 | [facility] | | | | + + + +-------+ + + + + | Result panel 6 | + + + + + +------+---------+ + | Glucose | 2025-07-09 | | 75 | mg/dL | (missing) | | [facility] | 18:45:07 | [facility] | | | | + + + +------+---------+ + + + | Result panel 7 | + + + + + +------+---------+ + | BUN | 2025-07-09 | | 16 | mg/dL | (missing) | | SerPwayne-[facility] | 18:45:07 | [facility] | | | | + + + +------+---------+ + + + | Result panel 8 | + + + + + +--------+---------+ + | Creat | 2025-07-09 | | 0.88 | mg/dL | (missing) | | SerPl-mCnc | 18:45:07 | [facility] | | | | + + + +--------+---------+ + + + | Result panel 9 | + + + + + +------+ + + | eGFRcr | 2025-07-09 | | 85 | (missing) | (missing) | | SerPlBld | 18:45:07 | [facility] | | | | | CKD-EPI 2020 | [facility] | | | | + + + +------+ + + + + | Result panel 10 | + + + + + +---------+ + + | PAOLA/[place] | 2025-07-09 | | 18.18 | (missing) | (missing) | | SerPl | 18:45:07 | [facility] | [facility] | | | | + + + +---------+ + + + + | Result panel 11 | + + + + + +-------+ + + | Sodium | 2025-07-09 | | 125 | (missing) | (missing) | | SerPl-sCnc | 18:45:07 | [facility] | [facility] | | | | + + + +-------+ + + + + | Result panel 12 | + + + + + +--------+ + + | RBC # Bld | 2025-07-09 | | 2.92 | (missing) | (missing) | | Auto | 18:45:07 | [facility] | | | | + + + +--------+ + + + + | Result panel 13 | + + + + + +-------+ + + | Potassium | 2025-07-09 | | 4.2 | (missing) | (missing) | | SerPl-sCnc | 18:45:07 | [facility] | | | | + + + +-------+ + + + + | Result panel 14 | + + + + + +------+ + + | Chloride | 2025-07-09 | | 94 | (missing) | (missing) | | SerPl-sCnc | 18:45:07 | [facility] | [facility] | | | | + + + +------+ + + + + | Result panel 15 | + + + + + +------+ + + | CO2 | 2025-07-09 | | 27 | (missing) | (missing) | | SerPl-sCnc | 18:45:07 | [facility] | | [facility] | | | | + + + +------+ + + + + | Result panel 16 | + + + + + +-------+ + + | Anion Gap | 2025-07-09 | | 8.2 | (missing) | (missing) | | SerPl | 18:45:07 | [facility] | | | | | Calculated.4 | [facility] | | | | + + + +-------+ + + + + | Result panel 17 | + + + + + +-------+---------+ + | Calcium | 2025-07-09 | | 8.2 | mg/dL | (missing) | | SerPl-mCnc | 18:45:07 | [facility] | [facility] | | | | + + + +-------+---------+ + + + | Result panel 18 | + + + + + +-------+---------+ + | Magnesium | 2025-07-09 | | 2.3 | mg/dL | (missing) | | SerPl-mCnc | 18:45:07 | [facility] | | | | + + + +-------+---------+ + + + | Result panel 19 | + + + + + +-------+ + + | Prot | 2025-07-09 | | 6.3 | (missing) | (missing) | | [facility] | 18:45:07 | [facility] | [facility] | | | | + + + +-------+ + + + + | Result panel 20 | + + + + + +-------+ + + | Albumin | 2025-07-09 | | 3.5 | (missing) | (missing) | | SerPl-mCnc | 18:45:07 | [facility] | | | | + + + +-------+ + + + + | Result panel 21 | + + + + + +-------+ + + | Globulin | 2025-07-09 | | 2.8 | (missing) | (missing) | | Ser-mCnc | 18:45:07 | [facility] | | | | + + + +-------+ + + + + | Result panel 22 | + + + + + +--------+ + + | | 2025-07-09 | | 1.25 | (missing) | (missing) | | Albumin/Glob | 18:45:07 | [facility] | | | | | SerPl | [facility] | | | | + + + +--------+ + + + + | Result panel 23 | + + + + + +-------+ + + | Hgb | 2025-07-09 | | 9.0 | (missing) | (missing) | | Bld-mCnc | 18:45:07 | [facility] | | | [facility] | | | | + + + +-------+ + + + + | Result panel 24 | + + + + + +-------+---------+ + | Bilirub | 2025-07-09 | | 0.5 | mg/dL | (missing) | | SerPl-mCnc | 18:45:07 | [facility] | | | | + + + +-------+---------+ + + + | Result panel 25 | + + + + + +------+ + + | AST | 2025-07-09 | | 17 | (missing) | (missing) | | SerPl-cCnc | 18:45:07 | [facility] | | | | + + + +------+ + + + + | Result panel 26 | + + + + + +------+ + + | ALT | 2025-07-09 | | 12 | (missing) | (missing) | | SerPl-cCnc | 18:45:07 | [facility] | | | | + + + +------+ + + + + | Result panel 27 | + + + + + +------+ + + | ALP | 2025-07-09 | | 61 | (missing) | (missing) | | SerPl-cCnc | 18:45:07 | [facility] | | | | + + + +------+ + + + + | Result panel 28 | + + + + + +--------+ + + | Troponin I | 2025-07-09 | | 22.1 | (missing) | (missing) | | SerPl | 18:45:07 | [facility] | | | | | HS-mCnc [facility] | | | | + + + +--------+ + + + + | Result panel 29 | + + + + + +---------+ + + | TSH SerPl | 2025-07-09 | | 4.193 | (missing) | (missing) | | DL<=0.005 | 18:45:07 | [facility] | | | | | mIU/L-aCnc | | - | | | | | | [facility] | | | | + + + +---------+ + + + + | Result panel 30 | + + + + + +--------+ + + | Hct VFr.DF | 2025-07-09 | | 27.9 | (missing) | (missing) | | Bld Auto | 18:45:07 | [facility] | | | | | | | - | | | | | | | [facility] | | | | + + + +--------+ + + + + | Result panel 31 | + + + + + +--------+ + + | RBC Auto | 2025-07-09 | | 95.5 | (missing) | (missing) | | | 18:45:07 | [facility] | | | | + + + +--------+ + + + + | Result panel 32 | + + + + + +--------+ + + | MCH RBC Qn | 2025-07-09 | | 30.8 | (missing) | (missing) | | Auto | 18:45:07 | [facility] | | | | + + + +--------+ + + + + | Result panel 33 | + + + + + +--------+ + + | MCHC RBC | 2025-07-09 | | 32.3 | (missing) | (missing) | | Auto-EntMCnc | 18:45:07 | [facility] | | | | + + + +--------+ + + + + | Result panel 34 | + + + + + +--------+ + + | Troponin I | 2025-07-09 | | 22.1 | (missing) | (missing) | | SerPl | 18:45:07 | [facility] | | | | | HS-mCnc [facility] | | | | + + + +--------+ + + + + | Result panel 35 | + + + + + +---------+ + + | TSH SerPl | 2025-07-09 | | 4.193 | (missing) | (missing) | | DL<=0.005 | 18:45:07 | [facility] | | | | | Pratibha/L-Abec [facility] | | | | + + + +---------+ + + + + | Result panel 36 | + + + + + +-------+ + + | Platelet # | 2025-07-09 | | 211 | (missing) | (missing) | | Bld Auto | 18:45:07 | [facility] | | | | + + + +-------+ + + + + | Result panel 37 | + + + + + +--------+ + + | Neutrophils | 2025-07-09 | | 77.8 | (missing) | (missing) | | NFr Bld | 18:45:07 | [facility] | | | | | Auto | [facility] | | | | + + + +--------+ + + + + | Result panel 38 | + + + + + + + + + | Color Ur | 2025-07-10 | | YELLOW | (missing) | (missing) | | Auto | 00:06:07 | [facility] | | | | + + + + + + + + + | Result panel 39 | + + + + + +---------+ + + | Character | 2025-07-10 | | CLEAR | (missing) | (missing) | | Ur | 00:06:07 | [facility] | | | | + + + +---------+ + + + + | Result panel 40 | + + + + + + + + + | Glucose Ur | 2025-07-10 | | NEGATIVE | (missing) | (missing) | | Ql Strip | 00:06:07 | [facility] | | | | + + + + + + + + + | Result panel 41 | + + + + + + + + + | Bilirub Ur | 2025-07-10 | | NEGATIVE | (missing) | (missing) | | Ql Strip | 00:06:07 | [facility] | | | | + + + + + + + + + | Result panel 42 | + + + + + + + + + | Ketones Ur | 2025-07-10 | | NEGATIVE | (missing) | (missing) | | Ql Strip | 00:06:07 | [facility] | | | | + + + + + + + + + | Result panel 43 | + + + + + +---------+ + + | Sp Gr Kevin | 2025-07-10 | | 1.015 | (missing) | (missing) | | Strip | 00:06:07 | [facility] | | | | + + + +---------+ + + + + | Result panel 44 | + + + + + + + + + | Hgb Ur Ql | 2025-07-10 | | TRACE-I | (missing) | (missing) | | Strip | 00:06:07 | [facility] | | | | + + + + + + + + + | Result panel 45 | + + + + + +-------+ + + | pH Ur Strip | 2025-07-10 | | 6.0 | (missing) | (missing) | | | 00:06:07 | [facility] | | | | | | | - | | | | | | | [facility] | | | | + + + +-------+ + + + + | Result panel 46 | + + + + + + + + + | Prot Ur | 2025-07-10 | | NEGATIVE | (missing) | (missing) | | Strip-mCnc | 00:06: | [facility] | | | | + + + + + + + + + | Result panel 47 | + + + + + + + + + | | 2025-07-10 | | NORMAL | (missing) | (missing) | | Urobilinogen | 00:06:07 | [facility] | | | | | Ur | [facility]-m[facility]nc | [facility] | | | | + + + + + + + + + | Result panel 48 | + + + + + + + + + | Nitrite Ur | 2025-07-10 | | NEGATIVE | (missing) | (missing) | | Ql Strip | 00:06:07 | [facility] | | | | | [facility] | | | | + + + + + + + + + | Result panel 49 | + + + + + + + + + | Leukocyte | 2025-07-10 | | NEGATIVE | (missing) | (missing) | | esterase Ur | 00:06:07 | [facility] | | | | | Ql Strip | [facility] | | | | + + + + + + + + + | Result panel 50 | + + + + + +--------+ + + | RBC #/area | 2025-07-10 | | 7-11 | (missing) | (missing) | | UrnS HPF | 00:06:07 | [facility] | | [facility] | | | | + + + +--------+ + + + + | Result panel 51 | + + + + + +-------+ + + | WBC #/area | 2025-07-10 | | 0-1 | (missing) | (missing) | | UrnS HPF | 00:06:07 | [facility] | | [facility] | | | | + + + +-------+ + + + + | Result panel 52 | + + + + + + + + + | Epi Cells | 2025-07-10 | | SQUAMOUS 1+ | (missing) | (missing) | | #/area UrnS | 00:06:07 | [facility] | | | | | HPF | [facility] | | | | + + + + + + + + + | Result panel 53 | + + + + + + + + + | Crystals | 2025-07-10 | | NONE SEEN | (missing) | (missing) | | UrnS Micro | 00:06:07 | [facility] | | | | [facility] | | | | + + + + + + + + + | Result panel 54 | + + + + + +--------+ + + | Bacteria | 2025-07-10 | | RARE | (missing) | (missing) | | #/area UrnS | 00:06:07 | [facility] | | | | | HPF | [facility] | | | | + + + +--------+ + + + + | Result panel 55 | + + + + + + + + + | Casts | 2025-07-10 | | NONE SEEN | (missing) | (missing) | | #/area UrnS | 00:06:07 | [facility] | | | | | LPF | [facility] | | | | + + + + + + + + + | Result panel 56 | + + + + + +------+ + + | Bacteria Ur | 2025-07-10 | | No | (missing) | (missing) | | Cult | 00:06:07 | [facility] | | | | [facility] | | | | + + + +------+ + + + + | Result panel 57 | + + + + + + + + + | Urn Spec | 2025-07-10 | | CLEAN CATCH | (missing) | (missing) | | Collect Meth | 00:06:07 | [facility] | | | | | Ur | [facility] | | | | + + + + + + + + + | Result panel 58 | + + + + + + + + + | Color Ur | 2025-07-10 | | YELLOW | (missing) | (missing) | | Auto | 00:06:07 | [facility] | | | | | [facility] | | | | + + + + + + + + + | Result panel 59 | + + + + + +---------+ + + | Character | 2025-07-10 | | CLEAR | (missing) | (missing) | | Ur | 00:06: | [facility] | | [facility] | | | | + + + +---------+ + + + + | Result panel 60 | + + + + + + + + + | Glucose Ur | 2025-07-10 | | NEGATIVE | (missing) | (missing) | | Ql Strip | 00:06: | [facility] | | [facility] | | | | + + + + + + + + + | Result panel 61 | + + + + + + + + + | Dorcas Ur | 2025-07-10 | | NEGATIVE | (missing) | (missing) | | Ql Strip | 00:06:07 | [facility] | [facility] | | | | + + + + + + + + + | Result panel 62 | + + + + + + + + + | Ketones Ur | 2025-07-10 | | NEGATIVE | (missing) | (missing) | | Ql Strip | 00:06:07 | [facility] | [facility] | | | | + + + + + + + + + | Result panel 63 | + + + + + +---------+ + + | Sp Gr Ur | 2025-07-10 | | 1.015 | (missing) | (missing) | | Strip | 00:06:07 | [facility] | | [facility] | | | | + + + +---------+ + + + + | Result panel 64 | + + + + + + + + + | Hgb Ur Ql | 2025-07-10 | | TRACE-I | (missing) | (missing) | | Strip | 00:06:07 | [facility] | | | | + + + + + + + + + | Result panel 65 | + + + + + +-------+ + + | pH Ur Strip | 2025-07-10 | | 6.0 | (missing) | (missing) | | | 00:06:07 | [facility] | | | | + + + +-------+ + + + + | Result panel 66 | + + + + + + + + + | Prot Ur | 2025-07-10 | | NEGATIVE | (missing) | (missing) | | Strip-mCnc | 00:06:07 | [facility] | [facility] | | | | + + + + + + + + + | Result panel 67 | + + + + + + + + + | | 2025-07-10 | | NORMAL | (missing) | (missing) | | Urobilinogen | 00:06:07 | [facility] | | | | | Ur | [facility] | [facility] | | | | + + + + + + + + + | Result panel 68 | + + + + + + + + + | Nitrite Ur | 2025-07-10 | | NEGATIVE | (missing) | (missing) | | Ql Strip | 00:06:07 | [facility] | | | | | [facility] | | | | + + + + + + + + + | Result panel 69 | + + + + + + + + + | Leukocyte | 2025-07-10 | | NEGATIVE | (missing) | (missing) | | esterase Ur | 00:06:07 | [facility] | | | | | Ql Strip | [facility] | | | | + + + + + + + + + | Result panel 70 | + + + + + +--------+ + + | RBC #/area | 2025-07-10 | | 7-11 | (missing) | (missing) | | UrnS [facility]PF | 00:06:07 | [facility] | | | | + + + +--------+ + + + + | Result panel 71 | + + + + + +-------+ + + | WBC #/area | 2025-07-10 | | 0-1 | (missing) | (missing) | | UrnS [facility] | 00:06:07 | [facility] | | | | + + + +-------+ + + + + | Result panel 72 | + + + + + + + + + | Epi Cells | 2025-07-10 | | SQUAMOUS 1+ | (missing) | (missing) | | #/area UrnS | 00:06:07 | [facility] | | | | [facility] | | | | + + + + + + + + + | Result panel 73 | + + + + + + + + + | Crystals | 2025-07-10 | | NONE SEEN | (missing) | (missing) | | UrnS Micro | 00:06:07 | [facility] | | | | + + + + + + + + + | Result panel 74 | + + + + + +--------+ + + | Bacteria | 2025-07-10 | | RARE | (missing) | (missing) | | #/area UrnS | 00:06:07 | [facility] | [facility] | | | | + + + +--------+ + + + + | Result panel 75 | + + + + + + + + + | Casts | 2025-07-10 | | NONE SEEN | (missing) | (missing) | | #/area UrnS | 00:06:07 | [facility] | | | | [facility] | | | | + + + + + + + + + | Result panel 76 | + + + + + +------+ + + | Bacteria Ur | 2025-07-10 | | No | (missing) | (missing) | | Cult | 00:06:07 | [facility] | | | | + + + +------+ + + + + | Result panel 77 | + + + + + + + + + | Urn Spec | 2025-07-10 | | CLEAN CATCH | (missing) | (missing) | | Collect Meth | 00:06:07 | [facility] | [facility] | | | | + + + + + + + + + | Result panel 78 | + + + + + +--------+ + + | Anion Gap | 2025-07-12 | | 10.2 | (missing) | (missing) | | SerPl | 17:35:07 | [facility] | | | | | Calculated.4 | [facility] | [facility] | | | | + + + +--------+ + + + + | Result panel 79 | + + + + + +-------+---------+ + | Calcium | 2025-07-12 | | 7.5 | mg/dL | (missing) | | [facility] | 17:35:07 | [facility] | [facility] | | | | + + + +-------+---------+ + + + | Result panel 80 | + + + + + +-------+---------+ + | Magnesium | 2025-07-12 | | 2.3 | mg/dL | (missing) | | [facility] | 17:35:07 | [facility] | [facility] | | | | + + + +-------+---------+ + + + | Result panel 81 | + + + + + +-------+ + + | Prot | 2025-07-12 | | 5.9 | (missing) | (missing) | | [facility] | 17:35:07 | [facility] | [facility] | | | | + + + +-------+ + + + + | Result panel 82 | + + + + + +-------+ + + | Albumin | 2025-07-12 | | 3.0 | (missing) | (missing) | | [facility] | 17:35:07 | [facility] | | | | + + + +-------+ + + + + | Result panel 83 | + + + + + +-------+ + + | Globulin | 2025-07-12 | | 2.9 | (missing) | (missing) | | [facility] | 17:35:07 | [facility] | | | | + + + +-------+ + + + + | Result panel 84 | + + + + + +--------+ + + | | 2025-07-12 | | 1.03 | (missing) | (missing) | | Albumin/Glob | 17:35:07 | [facility] | | | | + + + +--------+ + + + + | Result panel 85 | + + + + + +-------+---------+ + | Bilirub | 2025-07-12 | | 0.8 | mg/dL | (missing) | | [facility] | 17:35:07 | [facility] | | | | + + + +-------+---------+ + + + | Result panel 86 | + + + + + +------+ + + | AST | 2025-07-12 | | 14 | (missing) | (missing) | | [facility] | 17:35:07 | [facility] | | | | + + + +------+ + + + + | Result panel 87 | + + + + + +------+ + + | ALT | 2025-07-12 | | 13 | (missing) | (missing) | | [facility] | 17:35:07 | [facility] | | | | + + + +------+ + + + + | Result panel 88 | + + + + + +------+ + + | ALP | 2025-07-12 | | 57 | (missing) | (missing) | | [facility] | 17:35:07 | [facility] | | | | + + + +------+ + + + + | Result panel 89 | + + + + + +--------+ + + | WBC # Bld | 2025-07-12 | | 8.13 | (missing) | (missing) | | Auto | 17:35:07 | [facility] | | | | + + + +--------+ + + + + | Result panel 90 | + + + + + +--------+ + + | RBC # Bld | 2025-07-12 | | 2.62 | (missing) | (missing) | | Auto | 17:35:07 | [facility] | | | | + + + +--------+ + + + + | Result panel 91 | + + + + + +-------+ + + | Hgb | 2025-07-12 | | 8.3 | (missing) | (missing) | | [facility] | 17:35:07 | [facility] | | | | + + + +-------+ + + + + | Result panel 92 | + + + + + +--------+ + + | Hct VFr.DF | 2025-07-12 | | 25.1 | (missing) | (missing) | | Bld Auto | 17:35:07 | [facility] | | | | + + + +--------+ + + + + | Result panel 93 | + + + + + +--------+ + + | RBC Auto | 2025-07-12 | | 95.8 | (missing) | (missing) | | | 17:35:07 | [facility] | | | | + + + +--------+ + + + + | Result panel 94 | + + + + + +--------+ + + | MCH RBC Qn | 2025-07-12 | | 31.7 | (missing) | (missing) | | Auto | 17:35:07 | [facility] | | | | + + + +--------+ + + + + | Result panel 95 | + + + + + +--------+ + + | MCHC RBC | 2025-07-12 | | 33.1 | (missing) | (missing) | | [facility] | 17:35:07 | [facility] | | | | + + + +--------+ + + + + | Result panel 96 | + + + + + +-------+ + + | Platelet # | 2025-07-12 | | 131 | (missing) | (missing) | | Bld Auto | 17:35:07 | [facility] | | | | + + + +-------+ + + + + | Result panel 97 | + + + + + +--------+ + + | Neutrophils | 2025-07-12 | | 88.8 | (missing) | (missing) | | NFr Bld | 17:35:07 | [facility] | | | | | [facility] | | | | + + + +--------+ + + + + | Result panel 98 | + + + + + +-------+ + + | Lymphocytes | 2025-07-12 | | 6.3 | (missing) | (missing) | | NFr Bld | 17:35:07 | [facility] | | | | [facility] | | | | + + + +-------+ + + + + | Result panel 99 | + + + + + +-------+ + + | Monocytes | 2025-07-12 | | 3.9 | (missing) | (missing) | | NFr Bld Auto | 17:35:07 | [facility] | | | | + + + +-------+ + + + + | Result panel 100 | + + + + + +-------+ + + | Eosinophil | 2025-07-12 | | 0.2 | (missing) | (missing) | | NFr Bld Auto | 17:35:07 | [facility] | | | | + + + +-------+ + + + + | Result panel 101 | + + + + + +-------+ + + | Basophils | 2025-07-12 | | 0.4 | (missing) | (missing) | | NFr Bld Auto | 17:35:07 | [facility] | | | | + + + +-------+ + + + + | Result panel 102 | + + + + + +------+---------+ + | Glucose | 2025-07-12 | | 82 | mg/dL | (missing) | | [facility] | 17:35:07 | [facility] | [facility] | | | | + + + +------+---------+ + + + | Result panel 103 | + + + + + +------+---------+ + | BUN | 2025-07-12 | | 16 | mg/dL | (missing) | | [facility] | 17:35:07 | [facility] | | | | + + + +------+---------+ + + + | Result panel 104 | + + + + + +--------+---------+ + | Creat | 2025-07-12 | | 1.00 | mg/dL | (missing) | | [facility] | 17:35:07 | [facility] | | | | + + + +--------+---------+ + + + | Result panel 105 | + + + + + +------+ + + | eGFRcr | 2025-07-12 | | 74 | (missing) | (missing) | | [facility] | 17:35:07 | [facility] | | | | | CKD-EPI 2020 | [facility] | | | | + + + +------+ + + + + | Result panel 106 | + + + + + +---------+ + + | BUN/Creat | 2025-07-12 | | 16.00 | (missing) | (missing) | | [facility] | 17:35:07 | [facility] | | | | + + + +---------+ + + + + | Result panel 107 | + + + + + +-------+ + + | Sodium | 2025-07-12 | | 135 | (missing) | (missing) | | [facility] | 17:35:07 | [facility] | | | | + + + +-------+ + + + + | Result panel 108 | + + + + + +-------+ + + | Potassium | 2025-07-12 | | 3.2 | (missing) | (missing) | | [facility] | 17:35:07 | [facility] | | | | + + + +-------+ + + + + | Result panel 109 | + + + + + +-------+ + + | Chloride | 2025-07-12 | | 102 | (missing) | (missing) | | [facility] | 17:35:07 | [facility] | | | | + + + +-------+ + + + + | Result panel 110 | + + + + + +------+ + + | CO2 | 2025-07-12 | | 26 | (missing) | (missing) | | [facility] | 17:35:07 | [facility] | | [facility] | | | | + + + +------+ + + Social History +--------+ + + | date | description | facility | +--------+ + + Vital Signs + + + +---------+ | date | measurement | value | units | + + + +---------+ | 2025-07-09 00:00 | BMI | 19.9 | kg/m2 | + + + +---------+ | 2025-07-09 00:00 | height_metric | 177.8 | cm | + + + +---------+ | 2025-07-09 00:00 | height_standard | 70 | in | + + + +---------+ | 2025-07-09 00:00 | weight_metric | 63.001 | kg | + + + +---------+ | 2025-07-09 00:00 | weight_standard | 138.893 | lb | + + + +---------+ | 2025-07-10 00:00 | BP_diastolic | 49 | mmHg | + + + +---------+ | 2025-07-10 00:00 | BP_systolic | 112 | mmHg | + + + +---------+ | 2025-07-10 00:00 | heart_rate | 62 | /min | + + + +---------+ | 2025-07-10 00:00 | o2_saturation | 100 | % | + + + +---------+ | 2025-07-10 00:00 | respiration_rate | 16 | /min | + + + +---------+ | 2025-07-10 00:00 | | 97.9 | F | | | temperature_standar | | | | | d | | | + + + +---------+ | 2025-07-12 00:00 | BMI | 15.5 | kg/m2 | + + + +---------+ | 2025-07-12 00:00 | height_metric | 177.8 | cm | + + + +---------+ | 2025-07-12 00:00 | height_standard | 70 | in | + + + +---------+ | 2025-07-12 00:00 | weight_metric | 48.9 | kg | + + + +---------+ | 2025-07-12 00:00 | weight_standard | 107.806 | lb | + + + +---------+ | 2025-07-13 00:00 | BP_diastolic | 52 | mmHg | + + + +---------+ | 2025-07-13 00:00 | BP_systolic | 115 | mmHg | + + + +---------+ | 2025-07-13 00:00 | heart_rate | 75 | /min | + + + +---------+ | 2025-07-13 00:00 | o2_saturation | 98 | % | + + + +---------+ | 2025-07-13 00:00 | respiration_rate | 17 | /min | + + + +---------+ | 2025-07-13 00:00 | | 96.4 | F | | | temperature_standar | | | | | d | | | + + + +---------+"
--- OUTSIDE RECORDS SUMMARY | ~2025-09-14 | XMS | Continuity of Care Document ---
Demographics + + + | Address | [address] | | | [place] [address] | + + + | Preferred Language | Unknown | + + + | Marital Status | Never | + + + | Gnosticist Affiliation | Unknown | + + + | Race | or | + + + | Ethnic Group | Not or | + + + Author + + + | Author | [facility] | + + + | Organization | [facility] | + + + | Address | [address] | | | [place] [address] | + + + | Phone | | + + + Care Team Providers + + + + | Care Director [employer] Name | Role | Phone | + [...] | (no date) | METHOTREXATE SODIUM | [facility] | | | [facility] | + + + + | (no date) | METHOTREXATE SODIUM | [facility] | | | | [facility] | + + + + | (no date) | DIPHENOXYLATE HCL/ATROPINE | [facility] | | | | [facility] | + + + + | (no date) | DIPHENOXYLATE HCL/ATROPINE | [facility] | | | | [facility] | + + + + | (no date) | CLINDAMYCIN HCL | [facility] | | | | [facility] | + + + + | (no date) | CLINDAMYCIN HCL | [facility] | | | | [facility] | + + + + | (no date) | OMEPRAZOLE | [facility] | | | | [facility] | + + + + | (no date) | OMEPRAZOLE | [facility] | | | | [facility] | + + + + | (no date) | Ascorbic Acid | [facility] | | | | [facility] | + + + + | (no date) | Ascorbic Acid | [facility] | | | | [facility] | + + + + | (no date) | FINASTERIDE | [facility] | | | | [facility] | + + + + | (no date) | FINASTERIDE | [facility] | | | | [facility] | + + + + | (no date) | CALCIUM CARBONATE | [facility] | | | | [facility] | + + + + | (no date) | CALCIUM CARBONATE | [facility] | | | | [facility] | + + + + | (no date) | FERROUS SULFATE | [facility] | | | [facility] | + + + + | (no date) | FERROUS SULFATE | [facility] | | | [facility] | + + + + | (no date) | FOLIC ACID | [facility] | | | [facility] | + + + + | (no date) | FOLIC ACID | [facility] | | | [facility] | + + + + | (no date) | LISINOPRIL | [facility] | | | [facility] | + + + + | (no date) | LISINOPRIL | [facility] | | | [facility] | + + + + | (no date) | LORATADINE | [facility] | | | [facility] | + + + + | (no date) | LORATADINE | [facility] | | | | [facility] | + + + + | (no date) | ASCORBIC ACID | [facility] | | | | [facility] | + + + + | (no date) | ASCORBIC ACID | [facility] | | | | [facility] | + + + + | (no date) | DICLOFENAC SODIUM | [facility] | | | [facility] | + + + + | (no date) | DICLOFENAC SODIUM | [facility] | | | | [facility] | + + + + | (no date) | METFORMIN HCL | [facility] | | | [facility] | + + + + | (no ) | METFORMIN HCL | [facility] | | | [facility] | + + + + | (no date) | TAMSULOSIN HCL | [facility] | | | [facility] | + + + + | (no ) | TAMSULOSIN HCL | [facility] | | | [facility] | + + + + | (no date) | Levothyroxine Sodium | [facility] | | | | [facility] | + + + + | (no date) | Levothyroxine Sodium | [facility] | | | | [facility] | + + + + Problems + + + + | | description | facility | + + + + | 2025-07-10 00:00 | Anemia | [facility] | | | | [facility] | + + + + | 2025-07-10 00:00 | Anemia | [facility] | | | | [facility] | + + + + | 2025-07-10 00:00 | Dehydration | [facility] | | | | [facility] | + + + + | 2025-07-10 00:00 | Dehydration | [facility] | | | | [facility] | + + + + | 2025-07-12 00:00 | Hypocalcemia | [facility] | | | | [facility] | + + + + | 2025-07-12 00:00 | Chronic diarrhea | [facility] | | | | [facility] | + + + + Procedures [...] 6.3 | (missing) | (missing) | | [facility] | 18:45:07 | [facility] | | [...] 7.5 | mg/dL | (missing) | | [facility] | 17:35:07 | [facility] | | [...] 57 | (missing) | (missing) | | [facility] | 17:35:07 | [facility] | | | [...]
[~2025-09-14 17:48] MED LIST changes: -CALCIUM CARBON500 MG PO; -LEVOTHYROXINE25 MC1 PO; +TAMSULOSIN HCL0.4 MG PO; +TUMS200 MG PO
--- OUTSIDE RECORDS SUMMARY | 2025-09-14 17:49 | XMS ---
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 Pradip VISIT COUNT (12 MO.) [facility] TOTAL 3 NOTE: Visits indicate total known visits. 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
[2025-09-14] MEDS ORDERED: IPRATROPIUM BROMIDE 2.5 ML VIAL INH ONE (18:00)
[2025-09-14 18:06] LABS: BASOPHILS 0.1 % (0.2-1.2); EOSINOPHILS 0 % (0.8-7.0); LYMPHOCYTES 3.2 % (21.8-53.1); MCH 31.5 PG (25.7-32.2); MCHC 33.0 g/dL (32.3-36.5); MCV 95.6 fL (79.0-92.2); MONOCYTES 3.6 % (5.3-12.2); NEUTROPHILS 92.5 % (34.0-67.9); RBC 3.65 M/uL (4.63-6.08)
[2025-09-14] MEDS ORDERED: ALBUTEROL/IPRATROPIUM 3 ML NEB ONE (18:14)
[2025-09-14] MEDS ORDERED: SODIUM CHLORIDE 0.9% 1,000 ML IV PRN (18:15)
[2025-09-14 18:30] LABS: ALT (SGPT) 31.0 U/L (14-59); AST (SGOT) 67.0 U/L (15-37); GLOMERULAR FILTRATION RATE,EST 60.0 mL/min (>60); PROTEIN, TOTAL 7.2 g/dL (6.4-8.2); UREA NITROGEN 44.0 mg/dL (7-18)
[2025-09-14] MEDS ORDERED: DEXTROSE 50% 50 ML SYR IV ONE (18:30)
[2025-09-14] MEDS ORDERED: ALBUTEROL/IPRATROPIUM 3 ML NEB INH ONE (18:30)
[2025-09-14 19:00] LABS: LACTIC ACID, BLOOD 1.5 mmol/L (0.4-2.0)
[2025-09-14 20:36] LABS: BLOOD/HGB, URINE MODERATE (Negative); KETONE, URINE SMALL (Negative); LEUK ESTERASE, URINE SMALL (negative); NITRITE, URINE NEGATIVE (negative)
[2025-09-14 20:45] LABS: BACTERIA, URINE 2+ /hpf (negative); CASTS, URINE NONE SEEN \\lpf; CRYSTALS, URINE NONE SEEN (0-1+); EPITHELIAL CELLS, URINE SQUAMOUS 1+ /lpf (0-1+); REFLEX CULTURE, URINE Yes (No)
[2025-09-14] MEDS ORDERED: AZITHROMYCIN 500 MG in DEXTROSE 5% 250 ML IV ONE (22:15)
[2025-09-14] MEDS ORDERED: DEXTROSE 10% 1,000 ML IV ONE (22:15)
[2025-09-14] MEDS ORDERED: IBLOOD GLUCOSE TEST STRIP 1 EA TEST XX PRN (23:00)
[2025-09-14] MEDS ORDERED: GLUCAGON,HUMAN RECOMBINANT 1 MG/ML VIAL SUB-Q PRN (23:00)
[2025-09-14] MEDS ORDERED: IBLOOD GLUCOSE TEST STRIP 1 EA TEST VI SCH (23:00)
[2025-09-14] MEDS ORDERED: DEXTROSE 50% 50 ML SYR IV PRN ×2 (23:00)
[2025-09-14] MEDS ORDERED: ACETAMINOPHEN 325 MG TAB PO PRN (23:00)
[2025-09-14] MEDS ORDERED: Insulin Regular, Human 100 UNIT/ML ML SUB-Q SCH (23:00)
--- NOTE | 2025-09-14 23:45 | NUR ---
REPORT RECEIVED FROM ED NURSE,ANTHONY. PATIENT TRANSFERED VIA STRETCHER WITH A SLIDE SHEET. PATIENT IN ROOM 129. THIS NURSE RESUMED CARE. SKIN INSPECTION DONE. STAGE 2 ULCER ON LOWER BACK AND SOME BRUISING ON PATIENT'S SPINE AND SCAPULA. PICTURES TAKEN AND IN CHART. WOUNDS COVERED BY RAMONA SWIFT WITH DUNG.
[2025-09-15] VITALS (12 sets, daily range): BP systolic 95–119; BP diastolic 42–71
[2025-09-15 05:18] LABS: BASOPHILS 0.2 % (0.2-1.2); EOSINOPHILS 0 % (0.8-7.0); LYMPHOCYTES 3.4 % (21.8-53.1); MCH 31.6 PG (25.7-32.2); MCHC 32.9 g/dL (32.3-36.5); MCV 96.0 fL (79.0-92.2); MONOCYTES 5.0 % (5.3-12.2); NEUTROPHILS 90.9 % (34.0-67.9); RBC 3.23 M/uL (4.63-6.08)
[2025-09-15 05:35] LABS: ALT (SGPT) 27.0 U/L (14-59); AST (SGOT) 47.0 U/L (15-37); GLOMERULAR FILTRATION RATE,EST 64.0 mL/min (>60); PROTEIN, TOTAL 6.1 g/dL (6.4-8.2); UREA NITROGEN 37.0 mg/dL (7-18)
[2025-09-15] MEDS ORDERED: AZITHROMYCIN 500 MG VIAL ONE ×2 (08:24→08:27)
[2025-09-15] MEDS ORDERED: DEXTROSE 5% 250 ML IV ONE (08:31)
[2025-09-15] MEDS ORDERED: AZITHROMYCIN 500 MG in DEXTROSE 5% 250 ML IV SCH (09:00)
--- NOTE | 2025-09-15 09:00 | NUR ---
PT AWAKE AND ASSISTING WITH EATING BREAKFAST. ABLE TO DRINK WATER WITHOUT DIFFICULTY WHEN INSTRUCTED TO TUCK CHIN. PT NECK STIFF WITH LIMITED ROM. OREINTED BUT WITH LIMITED MEMORY OF HOW LONG HE HAD BEEN DOWN AT HOME. WET PRODUCTIVE COUGH NOTED, ENCOURAGED TO EXPECTORATE, STATES THIS STARTED AFTER FALLING. PT HAS APPETITE AND UNDERSTANDS ORAL FLUID INTAKE IS OF IMPROTANCE TODAY. DE LEON DRAINING CLOUDY YELLOW URINE. PT RATES PAIN 8/10 IN BACK OF HEAD AND DOWN SPINE, PRN TYLENOL ADMINISTERED AND PT REPOSISTIONED. TOWEL ROLL PLACED BEHIND NECK. CALL LIGHT IN LAP, TV ON PER REQUEST.
[2025-09-15] MEDS ORDERED: DEXTROSE 50% 50 ML SYR IV PRN ×2 (09:45)
[2025-09-15] MEDS ORDERED: ACETAMINOPHEN 325 MG TAB PO PRN (09:45)
[2025-09-15] MEDS ORDERED: LIDOCAINE 2% VISCOUS 6 ML SYR TOP ONE (09:45)
[2025-09-15] MEDS ORDERED: ELECTROLTYTE REPLACEMEMT CCU 1 EACH EA PO/IV SCH (09:45)
[2025-09-15] MEDS ORDERED: ENOXAPARIN SODIUM 40 MG/0.4 ML SYR SUB-Q SCH ×2 (09:45→13:18)
[2025-09-15] MEDS ORDERED: GLUCAGON,HUMAN RECOMBINANT 1 MG/ML VIAL SUB-Q PRN (09:45)
[2025-09-15] MEDS ORDERED: DEXTROSE 5% 1,000 ML IV PRN (09:45)
[2025-09-15] MEDS ORDERED: PROCHLORPERAZINE EDISYLATE 10 MG/2 ML VIAL IV PRN (09:45)
[2025-09-15] MEDS ORDERED: IBLOOD GLUCOSE TEST STRIP 1 EA TEST XX PRN (09:45)
[2025-09-15] MEDS ORDERED: POLYETHYLENE GLYCOL 3350 1 PACKET PO SCH ×2 (09:46→13:20)
[2025-09-15] MEDS ORDERED: FAMOTIDINE 20 MG TAB PO SCH ×2 (09:46→13:19)
[2025-09-15] MEDS ORDERED: LEVOTHYROXINE SODIUM 25 MCG TAB PO SCH ×2 (09:50→13:19)
[2025-09-15] MEDS ORDERED: AZITHROMYCIN 250 MG TAB PO SCH (10:13)
[2025-09-15] MEDS ORDERED: DEXTROSE 10% 1,000 ML IV SCH (10:15)
[2025-09-15] MEDS ORDERED: Insulin Regular, Human 100 UNIT/ML ML SUB-Q SCH (10:26)
--- NOTE | 2025-09-15 11:00 | NUR ---
PT WORKING WITH PHYSICAL THERAPY
[2025-09-15] MEDS ORDERED: IBLOOD GLUCOSE TEST STRIP 1 EA TEST VI SCH (12:00)
[2025-09-15] MEDS ORDERED: PHARMACY RENAL DOSE ADJUSTMENT 1 DOSE MISC PO SCH (12:00)
--- NOTE | 2025-09-15 12:35 | NUR ---
CBG'S REMAIN AROUND OR BELOW 200, MD AWARE. PER MD DO NOT TREAT WITH INSULIN AT THIS TIME TO PREVENT REPEAT HYPOGLYCEMIA. IVF REMAIN AT D10 AT 75.
--- NOTE | 2025-09-15 13:00 | NUR ---
MD MADE AWARE OF PT POOR URINE OUTPUT, 70ML IN LAST 4 HOURS - VERBAL ORDER RECEIVED FOR CHANGE IN IVF TO D5LR @200ML/HR. CONTINUING TO ENCOURAGED ORAL FLUID INTAKE, PT DROWSY.
[2025-09-15] MEDS ORDERED: DEXTROSE 5% - LACTATED RINGERS 1,000 ML IV SCH (13:15)
--- NOTE | 2025-09-15 15:43 | NUR ---
PT WAS REPOSITIONED TO R) SIDE. PT HAS NO REQUESTS AT THIS TIME. CALL LIGHT WITHIN REACH.
[2025-09-15] MEDS ORDERED: FERROUS SULFATE 325 MG TAB PO SCH (17:00)
--- NOTE | 2025-09-15 17:03 | NUR ---
PATIENT IS LAYING IN BED. PATIENTS VITAL SIGNS, I&OS AND BLOOD GLUCOSE WAS DONE. PATIENT WAS SAT UP FOR DINNER. CALL LIGHT IS WITHIN REACH AND NO FURTHER NEEDS AT THIS TIME.
--- NOTE | 2025-09-15 17:46 | NUR ---
MD NOTIFIED OF PTS CONTINUED POOR URINE OUTPUT DESPITE IVF RATE INCREAE TO 200ML/HR. NO CHANGES AT THIS TIME, WILL CONTINUE TO ENCOURAGE AND PUSH ORAL FLUID INTAKE. REVIEWED CBG'S, MOST RECENT 175, MD HOLDING ON TREATMENT WITH SS INSULIN TILL REACHING >200. PT SITTING UP IN BED EATING DINNER WATCHING TV, COLD STORAGE SUPERVISOR IN ROOM OFFERING FLUIDS.
--- NOTE | 2025-09-15 18:05 | NUR ---
PT RATES PAIN 9/10 IN BACK WHEN TRYING TO MOVE, DENIES TYLENOL AT THIS TIME. EATING DINNER WITHOUT ASSISTANCE. URINE OUTPUT REMAINS POOR, LUNG BASES WITHOUT CRACKLES, LEFT LOWER MORE DIM THAN RIGHT. PT ENCOURAGED TO DEEP BREATH AND COUGH.
--- NOTE | 2025-09-15 18:55 | NUR ---
PATIENT IS LAYING IN BED. FAMILY IS AT BEDSIDE. CALL LIGHT IS WITHIN REACH AND NO FURTHER NEEDS AT THIS TIME.
[2025-09-15] MEDS ORDERED: SENNOSIDES/DOCUSATE 1 EA TAB PO SCH (21:00)
--- NOTE | 2025-09-15 21:23 | NUR ---
PATIENT PLEASANT AND ORIENTED TIMES FOUR. ENCOURAGE TO DRINK FLUIDS. ENDORSED SOME NAUSEA, IV ZOFRAN GIVEN PER MAR. PATIENT GIVEN ACAPELLA WITH EDUCATION ON HOW TO USE IT. PATIENT AGREES TO DO IT EVERYTIME THERE IS A COMMERCIAL ON. PATIENT DENIES PAIN. FRESH ICE WATER AND SODA GIVEN PER REQUEST. PATIENT DENIES FURTHER NEEDS.
[2025-09-16] VITALS (10 sets, daily range): BP systolic 100–115; BP diastolic 51–60
--- NOTE | 2025-09-16 01:11 | NUR ---
PATIENT ENDORSED EATING COOKIES AND ASKED FOR HIS BLOOD SURGAR TO BE CHECKED. PATIENT HAD GARBLED AND MUMBLED SPEECH WHEN FIRST WAKING UP. BLOOD SUGAR 110, CRACKERS AND MILK GIVEN TO PATIENT PER REQUEST. PATIENT'S HOB IS AT 45 DEGREES NO SIGNS OF ASPIRATION. PATIENT ALERT AND ORIENTED TIMES FOUR. NO FURTHER NEEDS COMMUNICATED.
[2025-09-16 05:24] LABS: BASOPHILS 0.2 % (0.2-1.2); EOSINOPHILS 0.6 % (0.8-7.0); LYMPHOCYTES 10.1 % (21.8-53.1); MCH 31.0 PG (25.7-32.2); MCHC 32.3 g/dL (32.3-36.5); MCV 95.9 fL (79.0-92.2); MONOCYTES 6.5 % (5.3-12.2); NEUTROPHILS 82.1 % (34.0-67.9); RBC 2.71 M/uL (4.63-6.08)
[2025-09-16 05:43] LABS: ALT (SGPT) 22.0 U/L (14-59); AST (SGOT) 22.0 U/L (15-37); GLOMERULAR FILTRATION RATE,EST 72.0 mL/min (>60); PHOSPHORUS, INORGANIC 2.6 mg/dL (2.5-4.9); PROTEIN, TOTAL 5.3 g/dL (6.4-8.2); UREA NITROGEN 25.0 mg/dL (7-18)
[2025-09-16] MEDS ORDERED: AZITHROMYCIN 250 MG TAB PO SCH (09:00)
[2025-09-16] MEDS ORDERED: TAMSULOSIN HCL 0.4 MG CAP PO SCH (09:00)
--- NOTE | 2025-09-16 09:00 | NUR ---
AM ASSESSMENT COMPLETE - PT ASLEEP IN BED UPON ENTERING ROOM, WAKES EASILY BUT KEEPS EYES CLOSED UNLESS INSTRUCTED TO OPEN THEM. PT INC OF LARGE DARK STOOL IN ATTENDS, CLEANED AND DE LEON CARE COMPLETE. PT REPOSISTIONED IN BED AND BREAKFAST PROVIDED. PT ABLE TO FEED SELF, TALKING ON CELL PHONE TO SON. TAKES ORAL MEDICATIONS WITHOUT DIFFICULTY. AM CBG NOT NEEDING INSULIN COVERAGE. PT REPORTS PAIN OF 8/10 IN BACK - TYLENOL ADMINISTERED. NO SOB NOTED ON EXAM, VS STABLE.
--- NOTE | 2025-09-16 10:22 | NUR ---
NEW ALLYVN PLACED ON COCCYX OVER PREVIOUS ALLYVN ON DECUB. ADDITIONAL ALLYVN PLACED ON RIGHT BUTTOCKS OVER HEMATOMA WITH SMALL SPLIT IN IT.
--- NOTE | 2025-09-16 10:26 | NUR ---
RN ROUNDING ON PT - UP IN CHAIR AFTER PHYSICAL THERAPY. WATCHING TV WITHOUT COMPLAINTS, CALL LIGHT IN HAND.
--- NOTE | 2025-09-16 11:23 | NUR ---
PT UP IN CHAIR WATCHING TV, DENIES COMPLAINTS. STATES PAIN IS 0/10 SITTING AT THIS TIME. ENCOURAGED ORAL FLUID INTAKE. CORNET AT SIDE, ENCOURAGED USE. CALL LIGHT IN LAP.
--- NOTE | 2025-09-16 12:03 | NUR ---
REPORT RECEIVED FROM JAMISON MOTLEY. PATIENT IS SITTING IN THE CHAIR WITH EYES CLOSED AND RESPIRATIONS ARE EVEN AND UNLABORED. LUNCH TRAY SET UP IN FRONT OF THE PATIENT. CALL LIGHT AND PERSONAL BELONGINGS ARE WITHIN REACH.
--- NOTE | 2025-09-16 13:53 | NUR ---
PATIENT IS SITTING UPRIGHT IN THE CHAIR WITH EYES CLOSED AND RESPIRATIONS ARE EVEN AND UNLABORED. CALL LIGHT AND PERSONAL BELONGINGS ARE WITHIN REACH.
--- NOTE | 2025-09-16 14:13 | NUR ---
PATIENT IS SITTING IN THE CHAIR WITH EYES CLOSED AND RESPIRATIONS ARE EVEN AND UNLABORED. CALL LIGHT AND PERSONAL BELONGINGS ARE WITHIN REACH.
--- NOTE | 2025-09-16 14:51 | NUR ---
VITAL SIGNS AND INTAKE AND OUTPUT VALUES TAKEN AND DOCUMENTED IN THE CHART. PATIENT ASSISTED BACK TO BED WITH SBA AND FWW. PATIENT TOLERATED WELL. TWO WARM BLANKETS PROVIDED PER PATIENT REQUEST. PATIENT STATED NO FURTHER NEEDS AT THIS TIME. TV IS ON. CALL LIGHT AND PERSONAL BELONGINGS ARE WITHIN REACH.
--- NOTE | 2025-09-16 15:22 | NUR ---
PATIENT IS LYING IN BED WITH EYES CLOSED AND RESPIRATIONS ARE EVEN AND UNLABORED. CALL LIGHT AND PERSONAL BELONGINGS ARE WITHIN REACH. TV IS ON.
--- NOTE | 2025-09-16 16:15 | NUR ---
PATIENT IS LYING IN BED WITH EYES CLOSED AND RESPIRATIONS ARE EVEN AND UNLABORED. CALL LIGHT AND PERSONAL BELONGINGS ARE WITHIN REACH. TV IS ON.
--- NOTE | 2025-09-16 17:09 | NUR ---
PATIENT REPOSITIONED AND BOOSTED UP IN BED WITH JAMISON OBO. PATIENT TOLERATED WELL. PATIENT WITH DINNER TRAY SET UP IN FRONT OF HIME. D5LR CONTINUES TO INFUSE AT 75 ML/HR. PATIENT STATED NO FURTHER NEEDS AT THIS TIME. CALL LIGHT AND PERSONAL BELONGINGS ARE WITHIN REACH.
--- NOTE | 2025-09-16 18:02 | NUR ---
PATIENT IS LYING IN BED WITH HOB ELEVATED. PATIENT WITH EYES OPEN AND RESPIRATIONS ARE EVEN AND UNLABORED. PATIENT REPORTS BEING DONE WITH DINNER. DINNER TRAY REMOVED. IV PUMP CLEARED OF INTAKE FLUIDS AND DOCUMENTED IN THE CHART. PATIENT STATED NO FURTHER NEEDS AT THIS TIME. CALL LIGHT AND PERSONAL BELONGINGS ARE WITHIN REACH.
--- NOTE | 2025-09-16 18:41 | NUR ---
INTO CLEAN UP PATIENTS ROOM.
--- NOTE | 2025-09-16 19:32 | NUR ---
VERBAL REPORT RECEIVED BY RAINER SWIFT. PATIENT IS RESTING IN BED AWAKE AT THIS TIME. LIGHTS TURNED OFF PER PATIENT REQUEST. BED ALARM ON FOR PATIENT SAFETY. CALL LIGHT IN REACH.
--- NOTE | 2025-09-16 21:00 | NUR ---
PT RESTING WITH EYES CLOSED. AWAKENS EASILY. VS AND I&O OBTAINED. BLOOD SUGAR 104. DE LEON PATENT WITH 150 ML YELLOW URINE. WARM BLANKET PROVIDED. OLD SKIN TEAR ON LEFT FOREARM COVERED WITH ALLEVYN PER PT REQUEST. NO FURTHER NEEDS. BED ALARM IN PLACE. CALL LIGHT IN REACH.
--- NOTE | 2025-09-16 21:20 | NUR ---
MEDICATION ADMINISTRATION COMPLETE. PATIENT IS AWAKE IN BED AT THIS TIME. ALERT AND ORTINETED TO SELF, PLACE, EVENT BUT NOT TO YEAR. PATIENT HAS NO COMPLAINTS OF PAIN OR SOB. IVF RUNNING AT THIS TIME. BED ALARM ON FOR PATIENT SAFETY. PATIENT DENIES ANY NEEDS AT THIS TIME. CALL LIGHT IN REACH.
--- NOTE | 2025-09-16 23:40 | NUR ---
PATIENT HAD LARGE AMOUNT OF LIQUID STOOL. FRESH BRIEF APPLIED, LINEN CHANGE, DE LEON CARE PERFORMED. NEW ALLEYVN DRESSINGS APPLIED TO COCCYX X2 AND LEFT BUTTOCK. PATIENT REPOSITIONED IN BED. WAFFLE OVERLAY IN PLACE. BED ALARM ON FOR PATIENT SAFETY. CALL LIGHT WITHIN REACH.
[2025-09-17] VITALS (10 sets, daily range): BP systolic 107–132; BP diastolic 47–59
--- NOTE | 2025-09-17 02:01 | NUR ---
PATIENT RESTING EYES CLOSED. RESPIRATIONS ARE EVEN AND UNLABORED. PATIENT DENIES ANY NEEDS AT THIS TIME. BED ALARM ON FOR PATIENT SAFETY. CALL LIGHT WITHIN REACH.
[2025-09-17 05:07] LABS: BASOPHILS 0.2 % (0.2-1.2); EOSINOPHILS 2.1 % (0.8-7.0); LYMPHOCYTES 12.9 % (21.8-53.1); MCH 31.3 PG (25.7-32.2); MCHC 32.0 g/dL (32.3-36.5); MCV 97.7 fL (79.0-92.2); MONOCYTES 6.8 % (5.3-12.2); NEUTROPHILS 77.4 % (34.0-67.9); RBC 2.62 M/uL (4.63-6.08)
[2025-09-17 05:27] LABS: ALT (SGPT) 15.0 U/L (14-59); AST (SGOT) 19.0 U/L (15-37); GLOMERULAR FILTRATION RATE,EST 89.0 mL/min (>60); PHOSPHORUS, INORGANIC 2.5 mg/dL (2.5-4.9); PROTEIN, TOTAL 4.8 g/dL (6.4-8.2); UREA NITROGEN 23.0 mg/dL (7-18)
--- NOTE | 2025-09-17 05:42 | NUR ---
PATIENT RESTING IN BED EYES CLOSED. RESPIRATIONS EVEN AND UNLABORED. BED ALARM ON FOR PATIENT SAFETY. CALL LIGHT IN REACH.
--- NOTE | 2025-09-17 07:50 | NUR ---
THIS RN RECEIVED REPORT FROM JEFRY/THOMAS NNEKA RNS. PATIENT RESTING IN BED, MORNING MEDS GIVEN PRIOR TO BREAKFAST. PT TOLERATED 1 PILL AT A TIME WITH SIPS OF WATER. PT REQUESTED A WARM BLANKET. DENIES ANY OTHER NEEDS, IV PUMP CLEARED - FLUIDS INFUSING AT 125ML/HR AT THIS TIME. IV APPEARS PATENT. CALL LIGHT WITHIN REACH, BED ALARM IN PLACE FOR SAFETY. ALL PT CARE NEEDS MET AT THIS TIME.
--- NOTE | 2025-09-17 07:58 | NUR ---
UR CLINICAL REVIEW: 2 MN FOR [facility] [employer] MEETS INPT FOR PNEMONIA/UTI WITH NEED FOR SERIAL LABS, MONITORING, IVF, PT/OT. MEDICARE PART A ONLY INPT 10/15/25 @ 0948 ORDER MATCHES REG NO AUTH REQUIRED PER MEDICARE GUIDELINES DISCHARGE DISPO PENDING FURTHER CASE MANAGEMENT EVAL
--- NOTE | 2025-09-17 10:16 | NUR ---
WASHED PT'S FACE AND HANDS WITH WARM WASH CLOTH, FOLLOWING BREAKFAST. GOT PT FRESH ICE WATER AND CLEANED UP HIS ROOM. PT HAS CALL LIGHT ON HIS LAP.
--- NOTE | 2025-09-17 10:43 | NUR ---
PT JUST COMPLETED SESSION WITH OT, CURRENTLY SITTING UP IN CHAIR, ATTEMPTING TO CONTACT SON, WHOM HE IS REQUESTING I REACH OUT TO NOTIFY THAT HE IS HOSPITALIZED NOW. IV FLUIDS ALARMING, NEW BAG HUNG. CHAIR ALARM IN PLACE, CALL LIGHT WITHIN REACH. ALL PT CARE NEEDS MET, DENIES ANY FURTHER NEEDS.
--- NOTE | 2025-09-17 10:46 | NUR ---
ATTEMPTED TO CONTACT THOM, TAVARES WAS LEFT TO RETURN CALL..
[2025-09-17] MEDS ORDERED: MULTIVITAMINS THERAPEUTIC 1 EA TAB PO SCH (11:07)
[2025-09-17] MEDS ORDERED: FOLIC ACID 1 MG TAB PO SCH (11:08)
[2025-09-17] MEDS ORDERED: CYANOCOBALAMIN 1,000 MCG TAB PO SCH (11:08)
--- NOTE | 2025-09-17 11:11 | NUR ---
PT CALLED FOR ASSISTANCE TO WORK WITH PATIENT. BOTTOM VIEWED, 3 ALLEVYNS TO COCCYX AREA AND 1 TO SPINE, CDI AT THIS TIME. PT ATTEMPTING TO WORK WITH PATIENT BUT PT STATES HE JUST WORKED WITH ANOTHER THERAPIST, "IT SEEMS SUSPICOUS". PT STATES HE NEEDS TO HAVE BM, WANTED TO SIT DOWN, THIS RN/PT ASSISTED PATIENT WITH GAIT BELT/FWW TO BATHROOM, PT SITTING ON TOILET AT THIS TIME, WITH PT. ALL PT CARE NEEDS MET AT THIS TIME.
--- NOTE | 2025-09-17 11:30 | NUR ---
CHART FOR POTENTIAL NEED OF SNF SENT TO [facility].
[2025-09-17] MEDS ORDERED: FOSAMAX70 MG PO (11:55)
[2025-09-17] MEDS ORDERED: LOMOTIL TABLET1 EACH PO (11:55)
[2025-09-17] MEDS ORDERED: PLAQUENIL200 MG PO (11:57)
[2025-09-17] MEDS ORDERED: PROSCAR5 MG PO (11:59)
[2025-09-17] MEDS ORDERED: VITAMIN D3125 MC1 PO (11:59)
[2025-09-17] MEDS ORDERED: MIRALAX119 GM PO (14:49)
[2025-09-17] MEDS ORDERED: CERAVE SA CREA340 GM TOP (14:49)
--- NOTE | 2025-09-17 14:50 | NUR ---
MED REC COMPLETE
--- NOTE | 2025-09-17 14:50 | NUR ---
MED REC COMPLETE
--- NOTE | 2025-09-17 14:52 | NUR ---
INTO PATIENT ROOM. PERSONAL HEALTH INFORMATION REVIEWED. PATIENT LIVES ALONE. PATIENT DOES USE A WALKER AND CANE. HAS A COUPLE STEPS INTO THE HOME. RAIL INTO THE HOME. DOES NOT USE OXYGEN OR CPAP. DOES NOT DRIVE. DENIES DIFFCULTY PAYING UTLITIES OR OBTAINING FOOD. PATIENT SON AND FRIEND AT BEDSIDE. PATIENT IS REQUESTING TO GO TO [facility]. THEY HAVE BEEN DISCUSSING HE GO THERE. CALLED [facility] THEY ARE COMING UP NOW TO DO THE ASSESSMENT.
--- NOTE | 2025-09-17 15:37 | NUR ---
ACCEPTED TO [facility] FOR TOMORROW, 09/18/2025, IF MEDICALLY READY.
--- NOTE | 2025-09-17 16:00 | NUR ---
[facility] STAFF HERE TO SEE PT. 1630: PT REMAINS UP IN THE CHAIR NO C/OS AT THIS TIME. WANTED TO KNOW WHEN DINNER WAS. EXPLAINED THIME OF DINNER AND HE IS OKAY WITH THAT.
--- NOTE | 2025-09-17 16:08 | NUR ---
SPOKE WITH PATIENT AND SON, LOURDES. THEY ARE AGREEABLE TO [facility] WHEN MEDICALLY READY FOR DC. [facility] CAN ACCEPT PATIENT TOMORROW IF HE IS READY.
--- NOTE | 2025-09-17 16:18 | NUR ---
DR. MORENO UPDATED AND ORDERS GIVEN FOR HIM TO COMPLETE IF PATIENT IS MEDICALLY READY FOR DC TOMORROW.
--- NOTE | 2025-09-17 17:20 | NUR ---
PT REMAINS UP IN THE CHAIR AND EATTING DINNER TOOK MEDICATIONS WELL NO ISSUES AT THIS TIME.
--- NOTE | 2025-09-17 18:33 | NUR ---
PT BACK TO BED AT THIS TIME, AMBULATED WITH FWW AND DID WELL, FOLLOWED DIRESCTINS WELL. PT ATTENDS CHANGED AND HE WAS JUST PASSING GAS. CALL LIGHT WITHIN REACHED AND PT CELL PHONE IS ON HIS CHEST.
--- NOTE | 2025-09-17 19:37 | NUR ---
VERBAL REPORT RECEIVED BY ÁNGEL SWIFT. PATIENT IS RESTING IN BED AWAKE AT THIS TIME, DENIES ANY NEEDS. BED ALARM ON FOR PATIENT SAFETY. CALL LIGHT WITHIN REACH.
--- NOTE | 2025-09-17 20:09 | NUR ---
ASSESSMENT COMPLETE. PATIENT DENIES SOB, ACAPELLA USE ENCOURAGED. PATIENT DEMONSTRATED ACAPELLA USE AT THIS TIME. IVF RUNNING. BED ALARM ON FOR PATIENT SAFETY. PATIENT DENIES NEEDS AT THIS TIME. PATIENT IS SITTING UP IN BED AWAKE. CALL LIGHT AND PERSONAL BELONGINGS WITHIN REACH.
--- NOTE | 2025-09-17 23:13 | NUR ---
PATIENT REPOSITIONED IN BED. PATIENT IS ALERT TO SELF BUT IS DISORIENTED TO PLACE AND EVENT. PATIENT REIORIENTED TO PLACE, EVENT AND CALL LIGHT. BED ALARM ON FOR PATIENT SAFETY. CALL LIGHT WITHIN RECH.
--- NOTE | 2025-09-18 00:07 | NUR ---
PATIENT RESTING EYES CLOSED RESPIRATIONS EVEN AND UNLABORED. BED ALARM ON FOR PATIENT SAFETY. CALL LIGHT WITHIN REACH.
--- NOTE | 2025-09-18 02:30 | NUR ---
PATIENT PULLED IV OUT IN THE RIGHT FOREARM, TIP INTACT. NEW IV PLACED BY THIS RN IN THE LEFT FOREARM 20GA, PATIENT TOLERATED WELL. PATIENT REIORINTED TO TO ROOM. CALL LIGHT WITHIN REACH. BED ALARM ON FOR PATIENT SAFETY. IVF RUNNING AT THIS TIME.
--- NOTE | 2025-09-18 03:39 | NUR ---
PATIENT RESTING IN BED EYES CLOSED, RR EVEN AND UNLABORED. BED ALARM ON FOR PATIENT SAFETY. CALL LIGHT WITHIN REACH.
--- NOTE | 2025-09-18 04:18 | NUR ---
PATIENT RESTING IN BED EYES CLOSED. RR EVEN AND UNLABORED. BED ALARM ON FOR PATIENT SAFETY. CALL LIGHT WITHIN REACH.
--- NOTE | 2025-09-18 04:39 | NUR ---
pt RESTING IN BED EYES CLOSED, RR EVEN AND UNLABORED. BED ALARM ON FOR PATIENT SAFETY. CALL LIGHT WITHIN REACH.
[2025-09-18 05:28] LABS: BASOPHILS 0.4 % (0.2-1.2); EOSINOPHILS 3.4 % (0.8-7.0); LYMPHOCYTES 14.0 % (21.8-53.1); MCH 31.5 PG (25.7-32.2); MCHC 32.8 g/dL (32.3-36.5); MCV 96.1 fL (79.0-92.2); MONOCYTES 6.7 % (5.3-12.2); NEUTROPHILS 75.0 % (34.0-67.9); RBC 2.57 M/uL (4.63-6.08)
[2025-09-18 05:42] VITALS: BP 132/52
[2025-09-18 05:45] VITALS: BP 132/52
[2025-09-18 05:48] LABS: ALT (SGPT) 19.0 U/L (14-59); AST (SGOT) 17.0 U/L (15-37); GLOMERULAR FILTRATION RATE,EST 92.0 mL/min (>60); PHOSPHORUS, INORGANIC 2.6 mg/dL (2.5-4.9); PROTEIN, TOTAL 5.0 g/dL (6.4-8.2); UREA NITROGEN 16.0 mg/dL (7-18)
--- NOTE | 2025-09-18 05:48 | NUR ---
PATIENT RESTING IN BED EYES CLOSED. RR EVEN AND UNLABORED. IVF RUNNING AT THIS TIME. BED ALARM ON FOR PATIENT SAFETY. CALL LIGHT WITHIN REACH.
--- NOTE | 2025-09-18 06:14 | NUR ---
PATIENT REFUSED MORNING MEDS EDUCATION PROVIDED. PATIENT RESTING IN BED EYES CLOSED, RR EVEN AND UNLABORED. BED ALARM ON FOR PATIENT SAFETY. CALL LIGHT WITHIN REACH.
--- NOTE | 2025-09-18 07:15 | NUR ---
VERBAL REPORT RECEIVED FROM JAMISON GUZMAN AND JAMISON CALDERA. PT RESTS IN BED, EYES CLOSED, RESP EVEN AND UNLABORED.
--- NOTE | 2025-09-18 08:00 | NUR ---
Message from Tia at [facility] asking if this pt is ready for dc. I let her know I will find out at the 8:30 meeting and contact her.
--- NOTE | 2025-09-18 08:49 | NUR ---
PATIENT IS SITTING IN CHAIR. PATIENTS WAS PROVIDED WITH A WARM WASHCLOTH. CATHETER CARE AND LINEN WAS CHANGED. CALL LIGHT IS WITHIN REACH AND NO FURTHER NEEDS AT THIS TIME.
[2025-09-18] MEDS ORDERED: POTASSIUM CHLORIDE 10 MEQ TABCR PO SCH (09:00)
[2025-09-18] MEDS ORDERED: FINASTERIDE 5 MG TAB PO SCH (09:00)
--- NOTE | 2025-09-18 09:00 | NUR ---
Per 8:30 meeting pt is dischargable. I spoke with Tia and they would like this pt there by 2 pm. I will scheduled transport and update the and Charge Nurse.
--- NOTE | 2025-09-18 09:20 | NUR ---
Several attempts to contact the van and unable to do so. I also left a message at [facility] transport. IM letter reviewed with pt and a lengthyl discussion followed as pt wanted t comfirm he was not signing any agreement he could not leave the SNF if he doesn't like it. Pts son called during our conversation. He is getting an infusion. Updated he is medically to mi per our Dr. I will work on transportation. He asks I call the [facility] and use their transport. I let him know I have left a message. He states he will try and get clothing to him when he gets back to town. I let him know he has clean clothing at the bedside. He should be good for the next day or so when Radha has time to get him clothing.
--- NOTE | 2025-09-18 09:31 | NUR ---
PATIENT ASSESSMENT COMPLETE. [facility] PROVIDED.
--- NOTE | 2025-09-18 09:32 | NUR ---
CONTINUOUS FLUID INFUSION STOPPED ORDERED.
--- NOTE | 2025-09-18 10:00 | NUR ---
Received a call back from Octavio at Transport. Pt scheduled for the [facility] van at 1 pm.
[2025-09-18 10:03] VITALS: BP 129/61
--- NOTE | 2025-09-18 10:26 | NUR ---
IV TO JORI.
--- NOTE | 2025-09-18 11:32 | NUR ---
Orders, Pasrr, EMAR,dc summary faxed to Tia at [facility]. Packet taken to aide at floor desk.
[2025-09-18 12:42] VITALS: BP 134/70
--- NOTE | 2025-09-18 12:43 | NUR ---
THIS CINDER PIT WORKER IN TO GET PATIENT READY FOR DC. IV TAKEN OUT UPON RN REQUEST. CATH INTACT AND LOOKED GOOD, RN NOTIFIED. VITALS DONE. PATIENT DRESSED IN PERSONAL CLOTHES. PHONE AND METAL CHECKER PUT IN BAG WITH CLOTHES AND OTHER PERSONAL ITEMS. PATIENT IN CHAIR AT THIS TIME. CALL LIGHT IN REACH. CHAIR ALARM ON. NO FURTHER NEEDS AT THIS TIME.
--- NOTE | 2025-09-18 12:55 | NUR ---
IV REMOVED BY IRAM ROJAS. VS OBTAINED BY IRAM ROJAS. VSS. PT LEAVES MED-SURG VIA WHEELCHAIR, ESCORTED BY IRAM [facility] TO WHEELCHAIR VAN FOR TRANSPORTATION TO [facility].
--- NOTE | 2025-09-18 13:39 | NUR ---
CALLED [facility] TO GIVE REPORT, NO ANSWER, LEFT MESSAGE WITH CALL BACK NUMBER.
--- NOTE | 2025-09-18 13:47 | NUR ---
RECEIVED A CALL FROM LOURDES, SON. UPDATED HIM ON PATIENT DC TO [facility] FOR SNF VIA WHEELCHAIR VAN AT 1300 TODAY. QUESTIONS ANSWERED. STATES HE IS NOT FEELING WELL SO HE IS NOT GOING TO [facility] TODAY. NO FURTHER NEEDS AT THIS TIME.
--- NOTE | 2025-09-18 15:49 | NUR ---
TELEPHONE REPORT PROVIDED TO [facility].
--- NOTE | 2025-09-19 22:30 | EKG ---
[facility] [address] [place] [address] Signed Normal sinus rhythm Abnormal QRS-T angle, consider primary T wave abnormality Abnormal ECG When compared with ECG of 07-APR-2023 10:59, Vent. rate has increased BY 40 BPM Nonspecific T wave abnormality now evident in Inferior leads Confirmed by Donald Collazo MD () on 09/19/2025 10:29:49 PM Electronically Signed By: DONALD COLLAZO MD 09/19/[id number] PATIENT NAME: ELISHAWON YAHIR Electrocardiogram DATE OF : 40 PHYSICIAN: DONALD COLLAZO MD REPORT #: [id number] REPORT IS CONFIDENTIAL AND NOT TO BE RELEASED WITHOUT AUTHORIZATION
== END 2025-09-18 12:55 | disposition home or self-care (01) | DRG 194 ==
LOC: ED 17:48 → MS 22:49 → CCU 22:49 → MS 09-16 12:01
PROVIDERS: Emergency Medicine; Family Medicine; ADMIT Internal Medicine; ATTEND Internal Medicine
PROC: 0T9B70Z Drainage of Bladder with Drainage Device, Via Natural or Artificial Opening (ICD-10-PCS; principal; 2025-09-14)
PROC: 3E03329 Introduction of Other Anti-infective into Peripheral Vein, Percutaneous Approach (ICD-10-PCS; 2025-09-14)
DX: J18.9 Pneumonia, unspecified organism (principal); M62.82 Rhabdomyolysis; N39.0 Urinary tract infection, site not specified; D64.9 Anemia, unspecified; E03.9 Hypothyroidism, unspecified; E11.649 Type 2 diabetes mellitus with hypoglycemia without coma; Z96.653 Presence of artificial knee joint, bilateral; Z87.19 Personal history of other diseases of the digestive system; Z98.890 Other specified postprocedural states; Z98.42 Cataract extraction status, left eye; Z90.49 Acquired absence of other specified parts of digestive tract; Z79.899 Other long term (current) drug therapy; Z79.890 Hormone replacement therapy
CPT/HCPCS: 36415; 51702; 70450; 71045; 71250; 72125; 74176; 80053; 81001; 82550; 83605; 83735; 83880; 84100; 84439; 84484; 85025; 85060; 86140; 87088; 92523; 93005; 93010; 94640; 94799; 96361; 96374; 96375; 97110; 97161; 97166; 97530; 97535; 99285-25; A9270; J0456; J0696; J1650; J2405; J7030; J7060; J7121